=== PATIENT | female | born 1980 | race Two or more races ===

== ENCOUNTER 2017-06-25 11:55 | Emergency (ER) | payer OTHER ==
[~2017-06-25 11:55] MED LIST: ACET325T9 PO
[2017-06-25] MEDS ORDERED: KETOROLAC TROMETHAMINE 30 MG/ML INJ. IV ONE (12:45)
[2017-06-25] MEDS ORDERED: IV NORMAL SALINE 1000ML BAG 1,000 ML IV ONE (12:45)
--- NOTE | 2017-06-25 14:10 | PHYS DOC ---
Past Medical History Past Medical History: Other Additional Past Medical Histor: [facility] Past Surgical History: Tubal ligation, Other Additional Past Surgical Histo: W REPAIR Alcohol Use: Occasionally Drug Use: None Adult General Chief Complaint Chief Complaint: HEADACHE HPI HPI Patient is a 37 year old female brought to the ED by her with the complaint of headache. Patient describes a headache in the frontal forehead centrally it feels like "a knife stuck at the top of her head". She has had headaches like this in the past but they have not been this severe. She states "I called the migraines". Patient states she felt fine yesterday, she had gone to bed and was arty asleep, when she waked up to take her daughter to her bed and noticed that she had a frontal headache. She took some Tylenol PM and tried to go back to sleep but she feels like she just tossed and turned all night, she would sleep a while and then wake up a while and continued to have the headache. When she woke up this morning the headache was still there, going from the middle of the forehead up over the top of her head down the back of her neck. It is not worse on one side or the other. She has no visual disturbance. She's had no nausea or vomiting. She took some Tylenol at 8:30 this morning without relief. She denies fever or chills. Patient has no chronic medical problems and does not take daily medications. She has "bad knees" and takes Tylenol PM occasionally to help her sleep with knee pain. Review of Systems Review of Systems Constitutional: Denies fever or chills [] Eyes: Denies change in visual acuity, redness, or eye pain [] HENT: Denies nasal congestion or sore throat [] Respiratory: Denies cough or shortness of breath [] Cardiovascular: Denies chest pain GI: Denies abdominal pain, nausea, vomiting, bloody stools or diarrhea [] : Denies , she has had a BTL Musculoskeletal: Denies back pain or joint pain [] Integument: Denies rash or skin lesions [] Neurologic: As in history of present illness Current Medications Current Medications Current Medications Medications (Trade) Dose Ordered Sig/Jerome Start Time Stop Time Status Last Admin Dose Admin Fentanyl Citrate (Fentanyl 2ml Vial) 100 mcg 1X ONCE 06/25/17 14:15 06/25/17 14:16 DC 06/25/17 14:20 100 MCG Ketorolac Tromethamine (Toradol) 30 mg 1X ONCE 06/25/17 12:45 06/25/17 12:46 DC 06/25/17 12:45 30 MG Sodium Chloride 1,000 ml @ 1,000 mls/hr 1X ONCE 06/25/17 12:45 06/25/17 13:44 DC 06/25/17 12:46 1,000 MLS/HR Allergies Allergies Allergies Coded Allergies Type Severity Reaction Last Updated Verified Penicillins Allergy Unknown 04/24/14 Yes Physical Exam Physical Exam Constitutional: Well developed, well nourished, no acute distress, non-toxic appearance. Alert, mentating normally HENT: Normocephalic, atraumatic, bilateral external ears normal, oropharynx moist, no oral exudates, nose normal. [] Eyes: conjunctiva normal, no discharge. [] Neck: Normal range of motion, no stridor. [] Cardiovascular:Heart rate regular rhythm, no murmur [] Lungs & Thorax: Bilateral breath sounds clear to auscultation [] Skin: Warm, dry, no erythema, no rash. [] Extremities: No tenderness, no cyanosis, no clubbing, ROM intact, no edema. [] Neurologic: Alert and oriented X 3, normal motor function, normal sensory function, no focal deficits noted. Cranial nerves II through XII intact. No pronator drift. Strength 5 over 5 and equal bilaterally. Lower extremity strength including dorsiflexion of great toe 5 over 5 and equal bilaterally. Current Patient Data Vital Signs Vital Signs Date Time Temp Pulse Resp B/P (MAP) Pulse Ox O2 Delivery O2 Flow Rate FiO2 06/25/17 14:29 75 16 107/57 (74) 100 Room Air 06/25/17 12:09 98.0 98.0 Lab Values Laboratory Tests Test 06/25/17 11:27 POC Urine HCG, Qualitative Hcg negative (Negative) EKG EKG [] Radiology/Procedures Radiology/Procedures [] Course & Med Decision Making Course & Med Decision Making Pertinent Labs and Imaging studies reviewed. (See chart for details) 37-year-old female presents with a headache since last night. This is a headache similar to one that she has had in the past but just not this severe. It was not thunderclap in onset. The headache does not have concerning features , she has had no fever or chills. Her neck is entirely supple. I don't see any evidence of acute or concerning cause of the headache. Discussed with the patient and her that we will try a liter of fluids and some IV Toradol, she is agreeable to that plan. During her ED stay, the patient took a little nap. She states her headache improved from an "8 or 9" to a 5 after the fluids and Toradol. She continues to look very nontoxic, alert, appropriate. We will give her some IV fentanyl prior to discharge to go home and go to sleep with her driving. See instructions for plan. [] Dragon Disclaimer Dragon Disclaimer This electronic medical record was generated, in whole or in part, using a voice recognition dictation system. Departure Departure Impression: Primary Impression: Headache Disposition: 01 HOME, SELF-CARE Condition: IMPROVED Referrals: JENIFFER GAVIN MD (PCP) Patient Instructions: General Headache Without Cause, [id number] Additional Instructions: Home to rest. No driving for 12 hours due to the medication you were given. Try to take a nap this afternoon. If you need to, to go to bed tonight, you may use your Tylenol PM as usual. Drink plenty of fluids. Eat dinner tonight if you wake up between your nap and going to bed. If your headache worsens or new symptoms develop, return to emergency. DONALD BOLAÑOS MD Jun 25, 2017 14:10
[2017-06-25] MEDS ORDERED: fentaNYL PF VIAL 100 MCG/2 ML VIAL IV ONE (14:15)
[2017-06-25 14:29] VITALS: BP 107/57
[2017-06-26] MEDS ORDERED: no home medications (00:03)
[2017-06-26] MEDS ORDERED: TRAM-48 PO (18:49)
== END 2017-06-25 14:32 | disposition home or self-care (01) ==
LOC: ER 11:55
DX: R51 Headache (principal); Z88.0 Allergy status to penicillin
CPT/HCPCS: 81025; 96361; 96374; 96375; 99284; J1885; J3010; J7030

== ENCOUNTER 2017-06-25 18:27 | Observation (INO) | payer OTHER ==
[~2017-06-25] VITALS: Ht 157.5 cm; Wt 122.5 kg
[2017-06-25] MEDS ORDERED: ONDANSETRON PF 4 MG/2 ML VIAL. IV ONE (19:00)
[2017-06-25 19:09] LABS: BASO # 0.1 x10^3/uL (0.0-0.2); BASO % 1 % (0-3); EOS % 2 % (0-3); HEMATOCRIT 37.9 % (36.0-47.0); HEMOGLOBIN 12.3 g/dL (12.0-15.5); LYMPH # 3.2 x10^3/uL (1.0-4.8); LYMPH % 33 % (24-48); MEAN CORPUSCULAR HEMOGLOBIN 28 pg (25-35); MEAN CORPUSCULAR HGB CONC 33 g/dL (31-37); MEAN CORPUSCULAR VOLUME 87 fL (79-100); MONO % 6 % (0-9); NEUT % 58 % (31-73); PLATELET COUNT 283 x10^3/uL (140-400); RED BLOOD COUNT 4.35 x10^6/uL (3.50-5.40); RED CELL DISTRIBUTION WIDTH 14.5 % (11.5-14.5); WHITE BLOOD COUNT 9.8 x10^3/uL (4.0-11.0)
[2017-06-25] MEDS: fentaNYL PF VIAL 100 MCG/2 ML VIAL IV PRN ×2 (19:22→22:42)
[2017-06-25 19:23] LABS: CALCIUM 8.4 mg/dL (8.5-10.1); CREATININE 0.9 mg/dL (0.6-1.0); GFR 71.3; POTASSIUM 3.6 mmol/L (3.5-5.1)
[2017-06-25 19:26] LABS: ALBUMIN 3.1 g/dL (3.4-5.0); ALBUMIN/GLOBULIN RATIO 0.8 (1.0-1.7); TOTAL BILIRUBIN 0.2 mg/dL (0.2-1.0); TOTAL PROTEIN 7.2 g/dL (6.4-8.2)
--- NOTE | 2017-06-25 19:42 | RAD ---
PQRS Compliance Statement: One or more of the following individualized dose reduction techniques were utilized for this examination: 1. Automated exposure control 2. Adjustment of the mA and/or kV according to patient size 3. Use of iterative reconstruction technique CT HEAD, MAXILLOFACIAL WITHOUT CONTRAST History: FRONTAL LEONARD, ABOVE EYES, Comparison: None. Procedure: Axial images are obtained of the head from the skull base through the vertex without IV contrast. Helical CT imaging of the facial bones is performed without IV contrast. Findings: The ventricles and sulci are normal for the patient's age. No mass-effect, midline shift, hemorrhage or obvious acute infarction is identified. Basilar cisterns are patent. Bone windows demonstrate no significant calvarial abnormality. No acute facial bone fracture. Globes and orbits are intact. There is a 1.5 cm mucous retention cyst or polyp in the left maxillary sinus. Mild mucosal thickening bilateral ethmoid sinuses. Minimal mucosal thickening inferiorly in the maxillary sinuses. Minimal mucosal thickening right sphenoid sinus. No air-fluid level is seen.. Mastoid air cells are well aerated. IMPRESSION: 1. No acute intracranial abnormality. 2. No evidence of acute sinusitis. Electronically signed by: Azael Tobar MD (06/25/2017 7:39 PM) [facility]
[2017-06-25] MEDS ORDERED: diphenhydrAMINE 50 MG/ML VIAL IVP ONE (20:15)
[2017-06-25] MEDS ORDERED: HYDROmorphone 2 MG/ML VIAL IV ONE (20:15)
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
[2017-06-25] MEDS ORDERED: CONTRAST GIVEN MC PRN (21:00)
[2017-06-25] MEDS ORDERED: IOHEXOL 350 MG/ML 100 ML VIAL. IV ONE (21:15)
--- NOTE | 2017-06-25 21:51 | RAD ---
CT HEAD with contrast, CT venogram Clinical Indication: venous phase study to eval canernous sinus , 30 sec and 5 min delay, unable to make good quality 3D Comparison: CT head without contrast, earlier same day. TECHNIQUE: Helical CT imaging of the head is performed after 75 cc Omnipaque [address] venogram protocol. A 5 minute delay acquisition also acquired. 3-D MIP reconstructions performed. Findings: The dural venous sinuses are patent. The intracranial arteries appear intact. Enhancement of the cavernous sinuses is symmetric. No filling defect is identified. No abnormal enhancement in the brain parenchyma is identified. IMPRESSION: No evidence of cavernous sinus thrombosis. Electronically signed by: Azael Tobar MD (06/25/2017 9:48 PM) [facility]
[2017-06-25] MEDS ORDERED: fentaNYL PF VIAL 100 MCG/2 ML VIAL IV ONE (22:00)
[2017-06-25] MEDS ORDERED: methylPREDNISolone SOD SUCC PF 40 MG/ML VIAL. IV ONE (22:30)
[2017-06-25] MEDS: IV NORMAL SALINE 1000ML BAG 1,000 ML IV SCH (22:41)
[2017-06-25 23:20] VITALS: BP 114/68
[2017-06-26] MEDS ORDERED: no home medications (00:03)
[2017-06-26 03:00] VITALS: BP 123/62
[2017-06-26] MEDS: fentaNYL PF VIAL 100 MCG/2 ML VIAL IV PRN ×2 (03:48→07:51)
[2017-06-26] MEDS: IV NORMAL SALINE 1000ML BAG 1,000 ML IV SCH ×2 (03:50→18:02)
[2017-06-26 07:32] VITALS: BP 141/78
[2017-06-26] MEDS ORDERED: SUMAtriptan SUCCINATE 25 MG TABLET PO PRN (09:30)
[2017-06-26] MEDS ORDERED: ONDANSETRON PF 4 MG/2 ML VIAL. IV PRN (09:30)
[2017-06-26] MEDS ORDERED: ASA/APAP/CAFFEINE 250/250/65MG TABLET. PO PRN (09:30)
[2017-06-26] MEDS ORDERED: hydrALAZINE 20 MG/ML VIAL. IVP PRN (09:30)
[2017-06-26] MEDS ORDERED: traMADol 50 MG TABLET PO PRN (09:30)
[2017-06-26] MEDS ORDERED: ACETAMINOPHEN 325 MG TABLET. PO PRN (09:30)
[2017-06-26] MEDS ORDERED: MORPHINE SULFATE 2 MG/ML DISP.SYRIN. IV PRN (09:30)
[2017-06-26] MEDS ORDERED: DOCUSATE SODIUM 100 MG CAPSULE. PO PRN (09:30)
[2017-06-26 10:35] VITALS: BP 126/69
--- NOTE | 2017-06-26 11:37 | PDOC1 ---
History and Physical Date of Admission Date of Admission 06/26/17 Identification/Chief Complaint Chief Complaint HEADACHE Problems: Source Source: Chart review, Patient History of Present Illness History of Present Illness HPI Patient is a 37 year old female who returns to the ED for the second time last night with the complaint of headache. ERP saw the patient a few hours ago, see that record as well. pt had similar but much less headache before. SHE WAS Taking care her baby 2yo at home , felt forehead headche, radiating to occipital, wo vision or hearing change, severe 9/10, pounding sometimes, light bothers her. She had to lie down , but not better with her tylenol then came to ER. no ext numbness or weakness. NO fever, chills, vomiting, cough, sob. + nausea. She had a liter of IV normal saline and 30 of IV Toradol which took her headache from a "9 or 10" to about a 5. She then had fentanyl 100 and was discharged to home and I ask her to try to take a nap. never seen an neuro, and her pcp Never told her the diagnosis of the headache. CTA Neg, CT showed left maxillary cyst, no acute infection. Past Medical History Past Medical History headache Past Surgical History Past Surgical History: Tubal Ligation Family History Family History: Hypertension Social History Smoke: No ALCOHOL: social Drugs: None Current Problem List Problem List Problems Medical Problems: (1) Headache Status: Acute Current Medications Current Medications Current Medications Medications (Trade) Dose Ordered Sig/Ejrome Start Time Stop Time Status Last Admin Dose Admin Acetaminophen (Tylenol) 650 mg PRN Q6HRS PRN 06/26/17 09:30 Acetaminophen/ Aspirin/Caffeine (Excedrin Migraine) 1 tab PRN Q6HRS PRN 06/26/17 09:30 06/26/17 10:11 1 TAB Diphenhydramine HCl (Benadryl) 25 mg 1X ONCE 06/25/17 20:15 06/25/17 20:16 DC 06/25/17 20:23 25 MG Docusate Sodium (Colace) 100 mg PRN DAILY PRN 06/26/17 09:30 Fentanyl Citrate (Fentanyl 2ml Vial) 50 mcg PRN Q1HR PRN 06/25/17 22:15 06/26/17 22:14 06/26/17 07:51 50 MCG Hydralazine HCl (Apresoline) 10 mg PRN Q4HRS PRN 06/26/17 09:30 Hydromorphone HCl (Dilaudid) 1 mg 1X ONCE 06/25/17 20:15 06/25/17 20:16 DC 06/25/17 20:24 1 MG Info (Do NOT chart on this entry -- for MONITORING) 1 each PRN DAILY PRN 06/25/17 21:00 06/27/17 20:59 Iohexol (Omnipaque 350 Mg/ml) 100 ml 1X ONCE 06/25/17 21:15 06/25/17 21:16 DC 06/25/17 20:53 100 ML Methylprednisolone Sodium Succinate (SOLU-Medrol 40MG VIAL) 60 mg 1X ONCE 06/25/17 22:30 06/25/17 22:31 DC 06/25/17 22:42 60 MG Morphine Sulfate 2 mg PRN Q2HR PRN 06/26/17 09:30 Ondansetron HCl (Zofran) 4 mg PRN Q6HRS PRN 06/26/17 09:30 Sodium Chloride 1,000 ml @ 100 mls/hr Q10H 06/25/17 22:13 06/26/17 22:12 06/26/17 03:50 100 MLS/HR Sumatriptan Succinate (Imitrex) 50 mg PRN Q2HR PRN 06/26/17 09:30 Tramadol HCl (Ultram) 50 mg PRN Q6HRS PRN 06/26/17 09:30 06/26/17 11:12 50 MG Allergies Allergies Allergies Coded Allergies Type Severity Reaction Last Updated Verified coconut Allergy Severe Swelling 06/26/17 Yes Penicillins Allergy Intermediate 06/25/17 Yes ROS Review of System CONSTITUTIONAL: No fever or chills EYES: No recent changes SKIN: No rash or itching CARDIOVASCULAR: No chest pain, syncope, palpitations, or edema RESPIRATORY: No SOB or cough GASTROINTESTINAL: No nausea, vomiting or abdominal pain NEUROLOGICAL: No headaches or weakness ENDOCRINE: No cold or heat intolerance GENITOURINARY: No urgency or frequency of urination MUSCULOSKELETAL: No back pain or joint pain LYMPHATICS: No enlarged lymph nodes PSYCHIATRIC: No anxiety or depression Physical Exam Physical Exam GEN.: No apparent distress. Alert and oriented. HEENT: Head is normocephalic, atraumatic NECK: Supple. LUNGS: Clear to auscultation. HEART: RRR, S1, S2 present. Peripheral pulses intact ABDOMEN: Soft, nontender. Positive bowel sounds. EXTREMITIES: Without any cyanosis. NEUROLOGIC: Normal speech, normal tone PSYCHIATRIC: Normal affect, normal mood. SKIN: No ulcerations Vitals Vitals Vital Signs Date Time Temp Pulse Resp B/P (MAP) Pulse Ox O2 Delivery O2 Flow Rate FiO2 06/26/17 07:32 97.9 83 18 141/78 (99) 96 Room Air 97.9 Labs Labs Laboratory Tests Test 06/25/17 19:02 White Blood Count 9.8 x10^3/uL (4.0-11.0) Red Blood Count 4.35 x10^6/uL (3.50-5.40) Hemoglobin 12.3 g/dL (12.0-15.5) Hematocrit 37.9 % (36.0-47.0) Mean Corpuscular Volume 87 fL (79-100) Mean Corpuscular Hemoglobin 28 pg (25-35) Mean Corpuscular Hemoglobin Concent 33 g/dL (31-37) Red Cell Distribution Width 14.5 % (11.5-14.5) Platelet Count 283 x10^3/uL (140-400) Neutrophils (%) (Auto) 58 % (31-73) Lymphocytes (%) (Auto) 33 % (24-48) Monocytes (%) (Auto) 6 % (0-9) Eosinophils (%) (Auto) 2 % (0-3) Basophils (%) (Auto) 1 % (0-3) Neutrophils # (Auto) 5.7 x10^3uL (1.8-7.7) Lymphocytes # (Auto) 3.2 x10^3/uL (1.0-4.8) Monocytes # (Auto) 0.5 x10^3/uL (0.0-1.1) Eosinophils # (Auto) 0.2 x10^3/uL (0.0-0.7) Basophils # (Auto) 0.1 x10^3/uL (0.0-0.2) Erythrocyte Sedimentation Rate 25 (0-25) Sodium Level 141 mmol/L (136-145) Potassium Level 3.6 mmol/L (3.5-5.1) Chloride Level 102 mmol/L (98-107) Carbon Dioxide Level 29 mmol/L (21-32) Anion Gap 10 (6-14) Blood Urea Nitrogen 11 mg/dL (7-20) Creatinine 0.9 mg/dL (0.6-1.0) Estimated GFR (Cockcroft-Gault) 71.3 BUN/Creatinine Ratio 12 (6-20) Glucose Level 113 mg/dL (70-99) Calcium Level 8.4 mg/dL (8.5-10.1) Total Bilirubin 0.2 mg/dL (0.2-1.0) Aspartate Amino Transf (AST/SGOT) 13 U/L (15-37) Alanine Aminotransferase (ALT/SGPT) 21 U/L (14-59) Alkaline Phosphatase 83 U/L (46-116) Total Protein 7.2 g/dL (6.4-8.2) Albumin 3.1 g/dL (3.4-5.0) Albumin/Globulin Ratio 0.8 (1.0-1.7) Laboratory Tests Test 06/25/17 19:02 White Blood Count 9.8 x10^3/uL (4.0-11.0) Red Blood Count 4.35 x10^6/uL (3.50-5.40) Hemoglobin 12.3 g/dL (12.0-15.5) Hematocrit 37.9 % (36.0-47.0) Mean Corpuscular Volume 87 fL (79-100) Mean Corpuscular Hemoglobin 28 pg (25-35) Mean Corpuscular Hemoglobin Concent 33 g/dL (31-37) Red Cell Distribution Width 14.5 % (11.5-14.5) Platelet Count 283 x10^3/uL (140-400) Neutrophils (%) (Auto) 58 % (31-73) Lymphocytes (%) (Auto) 33 % (24-48) Monocytes (%) (Auto) 6 % (0-9) Eosinophils (%) (Auto) 2 % (0-3) Basophils (%) (Auto) 1 % (0-3) Neutrophils # (Auto) 5.7 x10^3uL (1.8-7.7) Lymphocytes # (Auto) 3.2 x10^3/uL (1.0-4.8) Monocytes # (Auto) 0.5 x10^3/uL (0.0-1.1) Eosinophils # (Auto) 0.2 x10^3/uL (0.0-0.7) Basophils # (Auto) 0.1 x10^3/uL (0.0-0.2) Erythrocyte Sedimentation Rate 25 (0-25) Sodium Level 141 mmol/L (136-145) Potassium Level 3.6 mmol/L (3.5-5.1) Chloride Level 102 mmol/L (98-107) Carbon Dioxide Level 29 mmol/L (21-32) Anion Gap 10 (6-14) Blood Urea Nitrogen 11 mg/dL (7-20) Creatinine 0.9 mg/dL (0.6-1.0) Estimated GFR (Cockcroft-Gault) 71.3 BUN/Creatinine Ratio 12 (6-20) Glucose Level 113 mg/dL (70-99) Calcium Level 8.4 mg/dL (8.5-10.1) Total Bilirubin 0.2 mg/dL (0.2-1.0) Aspartate Amino Transf (AST/SGOT) 13 U/L (15-37) Alanine Aminotransferase (ALT/SGPT) 21 U/L (14-59) Alkaline Phosphatase 83 U/L (46-116) Total Protein 7.2 g/dL (6.4-8.2) Albumin 3.1 g/dL (3.4-5.0) Albumin/Globulin Ratio 0.8 (1.0-1.7) VTE Prophylaxis Ordered VTE Prophylaxis Devices: Yes VTE Pharmacological Prophylaxi: Yes Assessment/Plan Assessment/Plan headache, likely migraine flare h/o chronic mild headache morbid obesity low albumin, no malnutrition plan: fu with neuro consult add exedrine and sumatripatin prn dvt ppx supportive care FARNAZ WISE MD Jun 26, 2017 11:37
[2017-06-26] MEDS ORDERED: ENOXAPARIN 40 MG/0.4 ML SYRINGE. SQ SCH (11:45)
[2017-06-26 14:30] VITALS: BP 122/72
[2017-06-26] MEDS ORDERED: IOHEXOL 350 MG/ML 100 ML VIAL. IV ONE (16:45)
[2017-06-26] MEDS ORDERED: CONTRAST GIVEN MC PRN (16:45)
--- NOTE | 2017-06-26 17:35 | RAD ---
PQRS Compliance Statement: One or more of the following individualized dose reduction techniques were utilized for this examination: 1. Automated exposure control 2. Adjustment of the mA and/or kV according to patient size 3. Use of iterative reconstruction technique CT ANGIOGRAPHY HEAD Clinical Indication: SEVERE HEADACHE Comparison: CT head with contrast, prior day. Technique: Axial CT imaging of the head was obtained after administration of 75 cc Omnipaque 350 intravenous contrast. 3-D reconstructions of the [place] of [place] were performed. PQRS Compliance Statement - Stenosis calculations for CT, MR and conventional angiography are based upon measurement of the distal ICA diameter in accordance with the NASCET methodology. Stenosis calculations for carotid ultrasound studies are derived from validated velocity criteria which are known to correlate with the NASCET methodology. Findings: Distal internal carotid arteries are patent. Anterior circulation is intact. No evidence of intracranial aneurysm. No focal stenosis is identified. Distal vertebral arteries are codominant. No evidence of dissection. Basilar artery is intact. Persistent origin of the left BRAKE [employer]PA[employer]ER AIR. No abnormal enhancement in the brain parenchyma is identified. There are bilateral subcentimeter cervical lymph nodes. IMPRESSION: Normal CTA head findings. Electronically signed by: Azael Tobar MD (06/26/2017 5:31 PM) [facility]
[2017-06-26] MEDS ORDERED: TRAM-48 PO (18:49)
--- NOTE | 2017-06-26 20:51 | PDOC3 ---
Discharge Summary [facility] Date of Admission: Jun 25, 2017 Discharge Date: Jun 26, 2017 Admitting Diagnosis headache, likely migraine flare h/o chronic mild headache morbid obesity low albumin, no malnutrition Problems: CONSULTS neuro Brief Hospital Course Patient is a 37 year old female who returns to the ED for the second time last night with the complaint of headache. ERP saw the patient a few hours ago, see that record as well. pt had similar but much less headache before. SHE WAS Taking care her baby 2yo at home , felt forehead headche, radiating to occipital, wo vision or hearing change, severe 9/10, pounding sometimes, light bothers her. She had to lie down , but not better with her tylenol then came to ER. no ext numbness or weakness. NO fever, chills, vomiting, cough, sob. + nausea. She had a liter of IV normal saline and 30 of IV Toradol which took her headache from a "9 or 10" to about a 5. She then had fentanyl 100 and was discharged to home and I ask her to try to take a nap. never seen an neuro, and her pcp Never told her the diagnosis of the headache. CTA Neg, CT showed left maxillary cyst, no acute infection. neuro consulted, did CTA, neg. dc home dc time 35min Patient History: FHx: diabetes mellitus Problems: Disposition home CONDITION AT DISCHARGE: Improved Diet regular Scheduled PRN Tramadol Hcl (Ultram), 1 TAB PO Q6HRS PRN for PAIN, (Reported) Miscellaneous Medications Acetaminophen (Tylenol), 325 MG PO, (Reported) [no home medications], (Reported) FARNAZ WISE MD Jun 26, 2017 20:51
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
== END 2017-06-26 19:35 | disposition home or self-care (01) ==
LOC: ER 18:27 → 5 SOUTH 22:10
PROVIDERS: ADMIT Internal Medicine; ATTEND Internal Medicine
DX: G43.909 Migraine, unspecified, not intractable, without status migrainosus (principal); I10 Essential (primary) hypertension; G89.29 Other chronic pain; E66.01 Morbid (severe) obesity due to excess calories; Z83.3 Family history of diabetes mellitus; Z82.49 Family history of ischemic heart disease and other diseases of the circulatory system
CPT/HCPCS: 36415; 70450; 70486; 70496; 80053; 85027; 85651; 96361; 96372; 96374; 96375; 96376; 99285; G0378; J1170; J1200; J1650; J2405; J2920; J3010; J7030; Q9967; G0379

== ENCOUNTER → 2017-07-22 | Outpatient (CLI) | payer OTHER ==
[2017-06-26 14:30] VITALS: BP 122/72
[~2017-07-22] MED LIST changes: +TRAM-48 PO; +no home medications
--- NOTE | 2017-07-22 12:26 | RAD ---
Exam performed: Right breast ultrasound. History: Pain and redness with palpable lump in the right breast. Date of service: 07/22/17. Comparison: Right breast ultrasound from 01/20/16 and 01/23/14. A diagnostic bilateral mammogram from 01/20/16 was also reviewed. Discussion: Target sonographic evaluation of the right breast is performed in the area of palpable concern at approximately 6:00 position. There is a ill-defined hypoechoic superficial solid mass with internal vascularity at 6:00 position in the periareolar region. Reportedly patient had a similar lesion which was excised in 2013 and yielded a benign pathology. Right axilla was also scanned which demonstrated mildly enlarged lymph nodes. Impression: Ill-defined hypoechoic irregular solid vascular mass measuring approximately 4.2 x 1.1 cm at 6:00 position in the superficial location in the periareolar region. The findings are suspicious. Ultrasound-guided biopsy is recommended. The findings were discussed with the patient and she agreed for biopsy. The results were given to Dr. Alisa Howard's nurse after completion of the study BI-RADS Category 4: suspicious. Mammography is the most sensitive method for finding small breast cancers, but it does not detect them all and is not a substitute for careful clinical examination. A negative mammogram does not negate a clinically suspicious finding and should not result in delay in biopsying a clinically suspicious abnormality. "Our facility is accredited by the [employer] Mammography Program."
== END | disposition home or self-care (01) ==
LOC: US 10:53
PROVIDERS: ATTEND Obstetrics & Gynecology
DX: N61.1 Abscess of the breast and nipple (principal)
CPT/HCPCS: 76641

== ENCOUNTER 2018-02-14 19:34 | Inpatient (IN) | payer OTHER ==
[2018-02-14 19:49] LABS: URINE HCG POC HCG NEGATIVE (Negative)
[2018-02-14] MEDS: ONDANSETRON PF 4 MG/2 ML VIAL. IV (20:36)
[2018-02-14] MEDS: fentaNYL PF VIAL 100 MCG/2 ML VIAL IV ×3 (20:36→23:18)
[2018-02-14 20:41] LABS: ADD MAN DIFF? NO
[2018-02-14 20:44] LABS: BASO % 0 % (0-3); EOS % 1 % (0-3); HEMATOCRIT 39.9 % (36.0-47.0); HEMOGLOBIN 13.1 g/dL (12.0-15.5); LYMPH % 13 % (24-48); MEAN CORPUSCULAR HEMOGLOBIN 29 pg (25-35); MEAN CORPUSCULAR HGB CONC 33 g/dL (31-37); MEAN CORPUSCULAR VOLUME 87 fL (79-100); MONO # 0.2 x10^3/uL (0.0-1.1); MONO % 3 % (0-9); NEUT # 6.3 x10^3uL (1.8-7.7); NEUT % 83 % (31-73); PLATELET COUNT 277 x10^3/uL (140-400); RED BLOOD COUNT 4.59 x10^6/uL (3.50-5.40); RED CELL DISTRIBUTION WIDTH 14.6 % (11.5-14.5); WHITE BLOOD COUNT 7.5 x10^3/uL (4.0-11.0)
[2018-02-14 20:58] LABS: D-DIMER 2.01 ug/mlFEU (0.00-0.50)
[2018-02-14 21:00] LABS: ANION GAP 11 (6-14); BLOOD UREA NITROGEN 10 mg/dL (7-20); BUN/CREATININE RATIO 13 (6-20); CALCIUM 8.9 mg/dL (8.5-10.1); CARBON DIOXIDE 24 mmol/L (21-32); CHLORIDE 103 mmol/L (98-107); CREATININE 0.8 mg/dL (0.6-1.0); GFR 81.6; GLUCOSE 154 mg/dL (70-99); POTASSIUM 3.8 mmol/L (3.5-5.1); SODIUM 138 mmol/L (136-145)
[2018-02-14 21:06] LABS: ALBUMIN 3.3 g/dL (3.4-5.0); ALBUMIN/GLOBULIN RATIO 0.7 (1.0-1.7); ALK PHOS 89 U/L (46-116); ALT (SGPT) 36 U/L (14-59); AST (SGOT) 25 U/L (15-37); MAGNESIUM 2.1 mg/dL (1.8-2.4); TOTAL BILIRUBIN 0.2 mg/dL (0.2-1.0); TOTAL PROTEIN 8.1 g/dL (6.4-8.2)
[2018-02-14 21:09] LABS: TROPONINI < 0.017 ng/mL (0.000-0.055)
[2018-02-14 21:13] LABS: BILIRUBIN,URINE NEGATIVE (NEG); CLARITY,URINE CLEAR; COLOR,URINE YELLOW; GLUCOSE,URINE NEGATIVE (NEG); NITRITE,URINE NEGATIVE (NEG); PH,URINE 5.5; PROTEIN,URINE 30 mg/dL (NEG-TRACE); UROBILINOGEN,URINE 0.2 mg/dL (0.2 mg/dL)
[2018-02-14 21:14] LABS: URINE HCG POC HCG NEGATIVE (Negative)
[2018-02-14 21:17] LABS: CKMB MASS < 0.5 ng/mL (0.0-3.6); CREATINE KINASE 51 U/L (26-192)
[2018-02-14 21:17] LABS: NT-PRO BNP 5 pg/mL (0-124)
[2018-02-14 21:20] LABS: AMORPHOUS SEDIMENT,UR PRESENT /HPF; BACTERIA,URINE FEW /HPF (0-FEW); RBC,URINE 0 /HPF (0-2); SQUAMOUS EPITHELIAL CELL,UR MOD /LPF; WBC,URINE OCC /HPF (0-4)
[2018-02-14] MEDS ORDERED: CONTRAST GIVEN MC (21:30)
[2018-02-14] MEDS: IOHEXOL 300 MG/ML 100ML VIAL. IV (21:37)
[2018-02-14] MEDS ORDERED: ONDANSETRON PF 4 MG/2 ML VIAL. IV (23:00)
[2018-02-14] MEDS: IV NORMAL SALINE 1000ML BAG 1,000 ML IV (23:18)
[2018-02-14] MEDS: AZITHROMYCIN 500 MG in IV DEXTROSE 5 %-0.2 % NACL 250 ML IV (23:57)
[2018-02-15] MEDS: ACETAMINOPHEN 325 MG TABLET. PO (02:12)
[2018-02-15] MEDS: fentaNYL PF VIAL 100 MCG/2 ML VIAL IV (02:12)
[2018-02-15 02:15] LABS: LACTIC ACID 0.9 mmol/L (0.4-2.0)
[2018-02-15] MEDS ORDERED: INFLUENZA VAX SCREEN BY RX. MC (02:45)
[2018-02-15 04:05] LABS: ADD MAN DIFF? NO
[2018-02-15 05:03] LABS: BASO % 0 % (0-3); EOS % 0 % (0-3); HEMATOCRIT 37.1 % (36.0-47.0); HEMOGLOBIN 12.4 g/dL (12.0-15.5); LYMPH # 1.4 x10^3/uL (1.0-4.8); LYMPH % 23 % (24-48); MEAN CORPUSCULAR HEMOGLOBIN 29 pg (25-35); MEAN CORPUSCULAR HGB CONC 34 g/dL (31-37); MEAN CORPUSCULAR VOLUME 87 fL (79-100); MONO # 0.4 x10^3/uL (0.0-1.1); MONO % 7 % (0-9); NEUT # 4.3 x10^3uL (1.8-7.7); NEUT % 70 % (31-73); PLATELET COUNT 282 x10^3/uL (140-400); RED BLOOD COUNT 4.25 x10^6/uL (3.50-5.40); RED CELL DISTRIBUTION WIDTH 14.6 % (11.5-14.5); WHITE BLOOD COUNT 6.1 x10^3/uL (4.0-11.0)
[2018-02-15 05:49] LABS: ANION GAP 9 (6-14); BLOOD UREA NITROGEN 9 mg/dL (7-20); CALCIUM 8.6 mg/dL (8.5-10.1); CARBON DIOXIDE 26 mmol/L (21-32); CHLORIDE 104 mmol/L (98-107); CREATININE 0.7 mg/dL (0.6-1.0); GFR 95.2; GLUCOSE 105 mg/dL (70-99); POTASSIUM 3.8 mmol/L (3.5-5.1); SODIUM 139 mmol/L (136-145)
[2018-02-15] MEDS ORDERED: IPRATRPIUM/ALBUTEROL 0.5/2.5MG 3 ML NEBU. (06:27)
[2018-02-15] MEDS: methylPREDNISolone SOD SUCC PF 40 MG/ML VIAL. IV (06:33)
[2018-02-15] MEDS: IPRATRPIUM/ALBUTEROL 0.5/2.5MG 3 ML NEBU. NEB ×4 (06:58→14:43)
[2018-02-15] MEDS ORDERED: ONDANSETRON PF 4 MG/2 ML VIAL. IV (11:00)
[2018-02-15] MEDS ORDERED: MORPHINE SULFATE 4 MG/ML DISP.SYRIN. IV (11:00)
[2018-02-15] MEDS ORDERED: ALBUTEROL SULFATE 2.5 MG/3 ML NEBU. NEB (11:00)
[2018-02-15] MEDS ORDERED: hydrALAZINE 20 MG/ML VIAL. IVP (11:00)
[2018-02-15] MEDS ORDERED: ACETAMINOPHEN 325 MG TABLET. PO (11:00)
[2018-02-15] MEDS ORDERED: DOCUSATE SODIUM 100 MG CAPSULE. PO (11:00)
[2018-02-15 11:27] LABS: INFLUENZA A PATIENT NEGATIVE (NEGATIVE); INFLUENZA B PATIENT NEGATIVE (NEGATIVE); OBC FLU VALID
[2018-02-15] MEDS: LACTOBACILLUS RHAMNOSUS GG 1 CAPSULE. PO ×2 (14:57→21:07)
[2018-02-15] MEDS: IV NORMAL SALINE 1000ML BAG 1,000 ML IV (14:58)
[2018-02-15] MEDS: cefTRIAXone IV Push 1 GM VIAL. IVP (21:06)
[2018-02-15] MEDS: ENOXAPARIN 40 MG/0.4 ML SYRINGE. SQ (21:08)
[2018-02-15] MEDS: AZITHROMYCIN IV (22:38)
[2018-02-15] MEDS: NACL IV (22:38)
[2018-02-15] MEDS: DEXTROSE IV (22:38)
[2018-02-16] MEDS: traMADol 50 MG TABLET PO (00:26)
[2018-02-16] MEDS: IV NORMAL SALINE 1000ML BAG 1,000 ML IV (03:16)
[2018-02-16 05:01] LABS: ADD MAN DIFF? NO
[2018-02-16 05:29] LABS: BASO % 0 % (0-3); EOS % 0 % (0-3); HEMATOCRIT 38.4 % (36.0-47.0); HEMOGLOBIN 12.2 g/dL (12.0-15.5); LYMPH % 45 % (24-48); MEAN CORPUSCULAR HEMOGLOBIN 28 pg (25-35); MEAN CORPUSCULAR HGB CONC 32 g/dL (31-37); MEAN CORPUSCULAR VOLUME 88 fL (79-100); MONO # 0.4 x10^3/uL (0.0-1.1); MONO % 7 % (0-9); NEUT # 3.1 x10^3uL (1.8-7.7); NEUT % 47 % (31-73); PLATELET COUNT 248 x10^3/uL (140-400); RED BLOOD COUNT 4.38 x10^6/uL (3.50-5.40); RED CELL DISTRIBUTION WIDTH 14.1 % (11.5-14.5); WHITE BLOOD COUNT 6.6 x10^3/uL (4.0-11.0)
[2018-02-16 05:56] LABS: ANION GAP 8 (6-14); BLOOD UREA NITROGEN 9 mg/dL (7-20); CALCIUM 8.6 mg/dL (8.5-10.1); CARBON DIOXIDE 28 mmol/L (21-32); CHLORIDE 108 mmol/L (98-107); CREATININE 0.6 mg/dL (0.6-1.0); GFR 113.8; GLUCOSE 106 mg/dL (70-99); POTASSIUM 4.3 mmol/L (3.5-5.1); SODIUM 144 mmol/L (136-145)
[2018-02-16] MEDS: ENOXAPARIN 40 MG/0.4 ML SYRINGE. SQ (08:59)
[2018-02-16] MEDS: LACTOBACILLUS RHAMNOSUS GG 1 CAPSULE. PO (08:59)
[2018-02-16] MEDS: FLU VACC QS2017-18 (36MOS+)/PF 0.5 ML SYRINGE. VAX IM (09:01)
[2018-02-16 16:23] LABS: LEGIONELLA AG UR Negative (Negative)
[2018-02-18 10:23] LABS: SPECIMEN SOURCE Urine (.); STREP PNEUMO ANTIGEN Negative (Negative)
== END 2018-02-16 15:59 | disposition home or self-care (01) | DRG 871 ==
LOC: 5 SOUTH 22:50 → ER 19:34
DX: A41.9 Sepsis, unspecified organism (principal); J15.9 Unspecified bacterial pneumonia; Z68.43 Body mass index [BMI] 50.0-59.9, adult; E66.01 Morbid (severe) obesity due to excess calories; Z79.899 Other long term (current) drug therapy; Z82.49 Family history of ischemic heart disease and other diseases of the circulatory system; Z83.3 Family history of diabetes mellitus; Z88.0 Allergy status to penicillin; Z91.018 Allergy to other foods; Z98.51 Tubal ligation status
CPT/HCPCS: 36415; 71045; 71275; 80048; 80053; 81001; 81025; 82553; 83605; 83735; 83880; 84484; 85025; 85379; 87040; 87449; 87804; 87804-59; 90686; 93005; 94640; 94760; 96365; 96375; 96376; 99285; 99285-25; J0456; J0690; J0696; J1650; J2405; J2920; J3010; J7030; J7620; Q9967

== ENCOUNTER 2019-05-26 09:06 | Emergency (ER) | payer OTHER ==
[~2019-05-26] VITALS: Ht 157.5 cm; Wt 136.1 kg
[~2019-05-26 09:06] MED LIST changes: +ALBU2.5V8 INH; +LEVO500T59 PO; +PRED20TA PO; +VENTOLIN HFA18 GM INH
--- NOTE | 2019-05-26 09:52 | RAD ---
Single view pelvis and two-view right hip dated 05/26/2019. No comparison available. Clinical data indication: Pain after fall. FINDINGS: Single AP view pelvis shows normal bony alignment. No displaced fracture. Pelvic ring is intact. Mild hypertrophic change of the bilateral SI joint and bilateral hip joint. 2 views of the right hip show normal bony alignment. No displaced fracture. No acute osseous or articular abnormality. IMPRESSION: No acute radiographic abnormality. Electronically signed by: Chun Sanchez MD (05/26/2019 9:49 AM) [facility]
[2019-05-26] MEDS ORDERED: ONDANSETRON PF 4 MG/2 ML VIAL. IV ONE (10:00)
[2019-05-26] MEDS ORDERED: MORPHINE SULFATE 10 MG/ML VIAL. SQ ONE (10:00)
[2019-05-26] MEDS ORDERED: KETOROLAC 30 MG/ML VIAL. IV ONE (10:00)
[2019-05-26 10:10] VITALS: BP 110/73
[2019-05-26] MEDS ORDERED: TRAM50TA PO (10:24)
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
[2019-06-02] MEDS ORDERED: NAPR-683 PO (17:05)
== END 2019-05-26 10:39 | disposition home or self-care (01) ==
LOC: ER 09:06
DX: S79.811A Other specified injuries of right hip, initial encounter (principal); S79.821A Other specified injuries of right thigh, initial encounter; E66.01 Morbid (severe) obesity due to excess calories; Z68.43 Body mass index [BMI] 50.0-59.9, adult; Z98.51 Tubal ligation status; Z88.0 Allergy status to penicillin; Z91.018 Allergy to other foods; W01.0XXA Fall on same level from slipping, tripping and stumbling without subsequent striking against object, initial encounter; Y93.89 Activity, other specified; Y92.89 Other specified places as the place of occurrence of the external cause; Y99.8 Other external cause status
CPT/HCPCS: 73502; 96372; 96374; 96375; 99284; J1885; J2270; J2405

== ENCOUNTER → 2019-07-02 | Outpatient (CLI) | payer OTHER ==
[2019-06-02 16:45] VITALS: BP 142/75
[~2019-07-02] MED LIST changes: +NAPR-683 PO; +TRAM50TA PO
--- NOTE | 2019-07-02 15:06 | RAD ---
DATE: 07/02/2019 8:02 AM EXAM: MAMMO GIDEON ASHLEY TIJERINA, BREAST RIGHT HISTORY: Imaging evaluation of a palpable abnormality in the right breast COMPARISON: Prior mammographic imaging 01/20/2016 Bilateral CC and MLO views of the breasts were performed. Bilateral breast tomosynthesis was performed in CC and MLO projections. This study was interpreted with the benefit of Computerized Aided Detection (CAD). FINDINGS: Breast Density: FATTY The Breast Parenchyma is primarily fatty replaced. Breast parenchyma level density A. Benign calcifications are present. Markers are seen overlying the right breast in any sites of palpable abnormality. Focal asymmetry seen in the retroareolar region of the right breast in the region of palpable abnormality. This area can be further assessed with ultrasound. Otherwise, no suspicious masses, microcalcifications or architectural distortion is present to suggest malignancy in either breast. The visualized axillae are unremarkable. ULTRASOUND FINDINGS: Targeted ultrasound of the patient detected area of concern and mammographic area of concern was performed. 7:00 position, in the retroareolar right breast: A 3.2 x 4.4 x 1.1 cm hypoechoic region is seen with internal heterogeneous echotexture and mild surrounding flow on color Doppler imaging. This is in the region of prior surgical biopsy per patient. This may represent seroma or abscess in the subcutaneous tissues IMPRESSION: No mammographic evidence of malignancy. Complex hypoechoic structure, likely collection in the subcutaneous tissues is seen in the retroareolar right breast at the approximately 7:00 position. Per patient, this is the site of prior surgical intervention/biopsy, and therefore may represent changes of seroma or abscess. BI-RADS CATEGORY: 3 PROBABLY BENIGN FINDING(S)-SHORT INTERVAL FOLLOW-UP SUGGESTED recommend clinical management of the hypoechoic structure, likely abscess or seroma and if image guided aspiration or biopsy is clinically indicated this can be performed. RECOMMENDED FOLLOW-UP: 6M 6 MONTH FOLLOW-UP PQRS compliance statement: Patient information was entered into a reminder system with a target due date for the next mammogram. Mammography is a sensitive method for finding small breast cancers, but it does not detect them all and is not a substitute for careful clinical examination. A negative mammogram does not negate a clinically suspicious finding and should not result in delay in biopsying a clinically suspicious abnormality. "Our facility is accredited by the [employer] Mammography Program."
== END | disposition home or self-care (01) ==
LOC: MAMMO 07:54
PROVIDERS: ATTEND Obstetrics & Gynecology
DX: R92.1 Mammographic calcification found on diagnostic imaging of breast (principal)
CPT/HCPCS: 76641; 77066; G0279; 77062

== ENCOUNTER 2020-07-31 12:41 | Inpatient (IN) | payer OTHER ==
[~2020-07-31] VITALS: Ht 157.5 cm; Wt 138.6 kg
--- NOTE | 2020-07-31 13:20 | EKG ---
[facility] [address] [place] [address] Test Date: 2020-07-31 Test Time: 13:11:42 Pat Name: KELLIE GONZALES Department: Room: Gender: F [employer] Admin: : 1980 Requested By: AZIZA COX Order Number: [id number] Reading MD: Measurements Intervals [place] Rate: 127 P: 192 CO: 112 QRS: -1 QRSD: 68 T: 14 QT: 346 QTc: 509 Interpretive Statements SUPRAVENTRICULAR RHYTHM LEFTWARD AXIS QRS(T) CONTOUR ABNORMALITY CONSIDER ANTEROSEPTAL MYOCARDIAL DAMAGE CONSISTENT WITH INFERIOR INFARCT PROBABLY OLD ABNORMAL ECG RI6.02 No previous ECG available for comparison
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
[2020-07-31] MEDS ORDERED: IV NORMAL SALINE 1000ML BAG 1,000 ML IV ONE (13:30)
[2020-07-31] MEDS ORDERED: ACETAMINOPHEN 500 MG TABLET PO ONE (13:30)
[2020-07-31 13:39] LABS: BASO % 0 % (0-3); EOS % 0 % (0-3); HEMOGLOBIN 14.3 g/dL (12.0-15.5); LYMPH # 1.7 x10^3/uL (1.0-4.8); LYMPH % 20 % (24-48); MEAN CORPUSCULAR HEMOGLOBIN 28 pg (25-35); MEAN CORPUSCULAR HGB CONC 33 g/dL (31-37); MEAN CORPUSCULAR VOLUME 85 fL (79-100); MONO # 0.5 x10^3/uL (0.0-1.1); MONO % 6 % (0-9); NEUT # 6.3 x10^3/uL (1.8-7.7); NEUT % 74 % (31-73); PLATELET COUNT 265 x10^3/uL (140-400); RED BLOOD COUNT 5.05 x10^6/uL (3.50-5.40); WHITE BLOOD COUNT 8.5 x10^3/uL (4.0-11.0)
[2020-07-31 13:52] LABS: CALCIUM 9.2 mg/dL (8.5-10.1); CREATININE 0.9 mg/dL (0.6-1.0); GFR 70.1; POTASSIUM 3.9 mmol/L (3.5-5.1)
--- NOTE | 2020-07-31 13:56 | RAD ---
INDICATION: Reason: COVID POS/SOA / Spl. Instructions: / History: COMPARISON: June 02, 2019 FINDINGS: Single view of chest obtained. Hypoexpanded examination with mild interstitial opacities bilaterally. Haziness at left lung base but limited evaluation of the region secondary to overlying cardiac silhouette obscuring. IMPRESSION: * Hypoexpanded exam with mild interstitial opacities bilaterally. This could be secondary to mild crowding of the vascular markings from hypoexpansion with mild edema or interstitial infiltrate also possible given this finding. There is relative haziness at the left lung base which could be secondary to a region of atelectasis or infiltrate. Electronically signed by: Ry Simmons MD (07/31/2020 1:53 PM) [id number]
[2020-07-31] MEDS ORDERED: AZITHRMYCN 500MG IVPB FOR OMNI 250 ML IV ONE (14:00)
[2020-07-31] MEDS ORDERED: cefTRIAXone IV Push 1 GM VIAL. IVP ONE (14:00)
[2020-07-31] MEDS ORDERED: DEXAMETHASONE SOD PHOS 4 MG/ML VIAL IVP ONE (14:00)
[2020-07-31 14:08] LABS: ALBUMIN 3.6 g/dL (3.4-5.0); ALBUMIN/GLOBULIN RATIO 0.7 (1.0-1.7); TOTAL BILIRUBIN 0.2 mg/dL (0.2-1.0); TOTAL PROTEIN 8.7 g/dL (6.4-8.2)
[2020-07-31 14:24] LABS: PREG TEST PT QUAL NEGATIVE (NEG)
[2020-07-31] MEDS ORDERED: ONDANSETRON PF 4 MG/2 ML VIAL. IV PRN (14:30)
[2020-07-31 14:37] LABS: BILIRUBIN,URINE NEGATIVE (NEG); CLARITY,URINE CLOUDY; COLOR,URINE YELLOW; NITRITE,URINE NEGATIVE (NEG); PROTEIN,URINE NEGATIVE (NEG-TRACE); UROBILINOGEN,URINE 0.2 mg/dL (0.2 mg/dL)
[2020-07-31 14:41] LABS: BACTERIA,URINE MANY /HPF (0-FEW); SQUAMOUS EPITHELIAL CELL,UR MANY /LPF; WBC,URINE 20-40 /HPF (0-4)
[2020-07-31 14:42] LABS: RBC,URINE OCC /HPF (0-2)
[2020-07-31 14:47] LABS: PROTHROMBIN TIME PATIENT 12.7 SEC (11.7-14.0)
[2020-07-31 14:50] LABS: D-DIMER 0.97 ug/mlFEU (0.00-0.50)
[2020-07-31] MEDS ORDERED: POTASSIUM CHLORIDE 10MEQ 100 ML IV SCH (15:45)
[2020-07-31] MEDS ORDERED: DEXTROSE 50% 25 GM / 50ML DISP.SYRIN. IV PRN (15:45)
[2020-07-31] MEDS ORDERED: ONDANSETRON PF 4 MG/2 ML VIAL. IVP PRN (15:45)
[2020-07-31] MEDS ORDERED: ACETAMINOPHEN 325 MG TABLET. PO PRN (15:45)
[2020-07-31] MEDS ORDERED: POTASSIUM CHLORIDE 20 MEQ TABLET.ER. PO PRN (15:45)
[2020-07-31] MEDS ORDERED: POTASSIUM CHLORIDE 10MEQ 100 ML IV PRN (15:45)
[2020-07-31] MEDS ORDERED: IOHEXOL 350 MG/ML 100 ML VIAL. IV ONE (15:45)
[2020-07-31] MEDS ORDERED: MAGNESIUM SULFATE 2GM 50 ML IV SCH (15:45)
[2020-07-31] MEDS ORDERED: SENNOSIDES 8.6 MG TABLET PO PRN (15:45)
[2020-07-31] MEDS ORDERED: DOCUSATE SODIUM 100 MG CAPSULE. PO PRN (15:45)
[2020-07-31] MEDS ORDERED: CONTRAST GIVEN. MC PRN (15:45)
[2020-07-31] MEDS ORDERED: ELECTROLYTE (NON-ICU) PROTOCOL MC PRN (16:15)
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
--- NOTE | 2020-07-31 16:41 | RAD ---
EXAM: CT chest with contrast - pulmonary embolus protocol CLINICAL HISTORY: Reason: covid, soa, pos d dimer COMPARISON: None. TECHNIQUE: CT of the chest following the administration of intravenous contrast during the pulmonary arterial phase. Axial, coronal and sagittal reformatted images were generated including MIP images. ---PQRS compliance statement - One or more of the following individualized dose reduction techniques were utilized for this study: 1. Automated exposure control 2. Adjustment of the mA and/or kV according to patient size 3. Use of iterative reconstruction technique--- FINDINGS: CHEST: Diagnostic quality: Suboptimal. Contrast is predominantly seen within the aorta. Pulmonary emboli: No obvious large central pulmonary emboli seen. The pulmonary artery branches are not adequately assessed. Right heart strain: None Pulmonary arteries: Normal in caliber. Heart is not enlarged. No pericardial effusion. No pleural effusion or pneumothorax. Several prominent and mildly enlarged mediastinal and hilar lymph nodes are seen. No axillary lymphadenopathy. Solid and groundglass opacities are seen dependently in the lower lobes and peripherally. A few nodular groundglass opacities are also seen in the lung apices. Visualized Upper abdomen: Hepatic hypoattenuation may be seen with fatty liver. Bones: No progressive osseous lesion is seen although degenerative changes of the spine are seen. Bony bridging of several left ribs likely from old trauma. IMPRESSION: 1. Examination is markedly limited for pulmonary embolus given predominant aortic phase of imaging. Within these constraints no obvious central pulmonary embolus is seen, distal branches are not adequately assessed. 2. Bilateral predominantly peripheral groundglass and solid nodular opacities are consistent with provided history of COVID pneumonia. Other infectious or inflammatory processes could also have this appearance. Imaging follow-up to resolution is recommended to exclude underlying mass. 3. Prominent to borderline enlarged mediastinal and hilar lymph nodes may be reactive. Electronically signed by: Khoi Carbone MD (07/31/2020 4:38 PM) [facility]
[2020-07-31] MEDS ORDERED: ACET500T68 PO (17:08)
[2020-07-31] MEDS: AZITHROMYCIN 500 MG in IV NORMAL SALINE 250ML 250 ML IV SCH (18:30)
[2020-07-31] MEDS: cefTRIAXone IV Push 1 GM VIAL. IVP SCH (18:31)
[2020-07-31] MEDS: THIAMINE INJ 100 MG in IV DEXTROSE 5% 50 ML IV SCH (18:31)
[2020-07-31] MEDS: methylPREDNISolone SOD SUCC PF 40 MG/ML VIAL. IV SCH ×2 (18:32→23:52)
[2020-07-31] MEDS: IPRATRPIUM/ALBUTEROL 0.5/2.5MG 3 ML NEBU. NEB SCH (19:27)
[2020-07-31 19:59] VITALS: BP 121/87
[2020-07-31] MEDS ORDERED: MAGNESIUM OXIDE 400 MG TABLET PO SCH (21:00)
[2020-07-31 22:30] VITALS: BP 115/77
[2020-08-01 03:10] VITALS: BP 129/74
[2020-08-01 04:23] LABS: BASO % 0 % (0-3); EOS % 0 % (0-3); HEMATOCRIT 38.3 % (36.0-47.0); HEMOGLOBIN 12.6 g/dL (12.0-15.5); LYMPH # 1.1 x10^3/uL (1.0-4.8); LYMPH % 27 % (24-48); MEAN CORPUSCULAR HEMOGLOBIN 28 pg (25-35); MEAN CORPUSCULAR HGB CONC 33 g/dL (31-37); MEAN CORPUSCULAR VOLUME 85 fL (79-100); MONO # 0.1 x10^3/uL (0.0-1.1); MONO % 2 % (0-9); NEUT # 2.9 x10^3/uL (1.8-7.7); NEUT % 71 % (31-73); PLATELET COUNT 260 x10^3/uL (140-400); RED BLOOD COUNT 4.48 x10^6/uL (3.50-5.40); RED CELL DISTRIBUTION WIDTH 15.2 % (11.5-14.5); WHITE BLOOD COUNT 4.1 x10^3/uL (4.0-11.0)
[2020-08-01 05:35] LABS: CALCIUM 8.9 mg/dL (8.5-10.1); CREATININE 0.7 mg/dL (0.6-1.0); GFR 93.6; MAGNESIUM 2.2 mg/dL (1.8-2.4); PHOSPHORUS 3.1 mg/dL (2.6-4.7); POTASSIUM 4.2 mmol/L (3.5-5.1)
[2020-08-01] MEDS: IPRATRPIUM/ALBUTEROL 0.5/2.5MG 3 ML NEBU. NEB SCH ×4 (06:29→20:00)
[2020-08-01] MEDS: methylPREDNISolone SOD SUCC PF 40 MG/ML VIAL. IV SCH ×3 (06:42→16:52)
[2020-08-01 07:52] VITALS: BP 119/79
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
[2020-08-01] MEDS: PANTOPRAZOLE 40 MG TABLET.DR. PO SCH (09:28)
[2020-08-01] MEDS: THIAMINE INJ 100 MG in IV DEXTROSE 5% 50 ML IV SCH (09:28)
[2020-08-01] MEDS: ASCORBIC ACID 500 MG TABLET PO SCH (09:28)
--- NOTE | 2020-08-01 09:50 | NUR ---
[facility] following for discharge planning. Spoke with RN and reviewed chart. Pt from home, regular diet. Pt currently on 2l 02 with no home 02. [facility] requested a 6 min walk for today, as pt is a potential weekend discharge. Pt currently on IV Dextrose and IV Rocephin. Pt COVID positive. Pt added to possible weekend discharge list. [facility] following. Addendum: 08/01/20 at 1049 by ALBA ROD Spoke with RT to request 6 min walk be completed [facility]. Patient choice of vendor form completed. [facility]ek[facility] notified of potential 02 needs over the weekend. Addendum: 08/01/20 at 1227 by ALBA ROD 6 min walk results and script faxed to [facility]. Pt approved for . Tank delivered to room. Pt to call [employer] upon discharge home for home 02 setup. Pt will needs scripts at discharge if oral abx are needed. [facility] updated weekend discharge list but there should be no further SW needs. Addendum: 08/01/20 at 1418 by ALBA ROD Spoke with pt who verified she will call [facility] once she gets home for setup.
--- NOTE | 2020-08-01 09:51 | PDOC ---
Infectious Disease Note Vital Sign Vital Signs Vital Signs Date Time Temp Pulse Resp B/P (MAP) Pulse Ox O2 Delivery O2 Flow Rate FiO2 08/01/20 07:52 98.9 78 16 119/79 (92) 96 Nasal Cannula 2.0 98.9 Labs Lab Laboratory Tests Test 07/31/20 13:20 07/31/20 14:25 08/01/20 04:00 White Blood Count 8.5 x10^3/uL (4.0-11.0) 4.1 x10^3/uL (4.0-11.0) Red Blood Count 5.05 x10^6/uL (3.50-5.40) 4.48 x10^6/uL (3.50-5.40) Hemoglobin 14.3 g/dL (12.0-15.5) 12.6 g/dL (12.0-15.5) Hematocrit 43.0 % (36.0-47.0) 38.3 % (36.0-47.0) Mean Corpuscular Volume 85 fL (79-100) 85 fL (79-100) Mean Corpuscular Hemoglobin 28 pg (25-35) 28 pg (25-35) Mean Corpuscular Hemoglobin Concent 33 g/dL (31-37) 33 g/dL (31-37) Red Cell Distribution Width 15.0 % (11.5-14.5) 15.2 % (11.5-14.5) Platelet Count 265 x10^3/uL (140-400) 260 x10^3/uL (140-400) Neutrophils (%) (Auto) 74 % (31-73) 71 % (31-73) Lymphocytes (%) (Auto) 20 % (24-48) 27 % (24-48) Monocytes (%) (Auto) 6 % (0-9) 2 % (0-9) Eosinophils (%) (Auto) 0 % (0-3) 0 % (0-3) Basophils (%) (Auto) 0 % (0-3) 0 % (0-3) Neutrophils # (Auto) 6.3 x10^3/uL (1.8-7.7) 2.9 x10^3/uL (1.8-7.7) Lymphocytes # (Auto) 1.7 x10^3/uL (1.0-4.8) 1.1 x10^3/uL (1.0-4.8) Monocytes # (Auto) 0.5 x10^3/uL (0.0-1.1) 0.1 x10^3/uL (0.0-1.1) Eosinophils # (Auto) 0.0 x10^3/uL (0.0-0.7) 0.0 x10^3/uL (0.0-0.7) Basophils # (Auto) 0.0 x10^3/uL (0.0-0.2) 0.0 x10^3/uL (0.0-0.2) Sodium Level 137 mmol/L (136-145) 138 mmol/L (136-145) Potassium Level 3.9 mmol/L (3.5-5.1) 4.2 mmol/L (3.5-5.1) Chloride Level 101 mmol/L (98-107) 104 mmol/L (98-107) Carbon Dioxide Level 27 mmol/L (21-32) 24 mmol/L (21-32) Anion Gap 9 (6-14) 10 (6-14) Blood Urea Nitrogen 11 mg/dL (7-20) 11 mg/dL (7-20) Creatinine 0.9 mg/dL (0.6-1.0) 0.7 mg/dL (0.6-1.0) Estimated GFR (Cockcroft-Gault) 70.1 93.6 BUN/Creatinine Ratio 12 (6-20) Glucose Level 123 mg/dL (70-99) 162 mg/dL (70-99) Lactic Acid Level 1.6 mmol/L (0.4-2.0) Calcium Level 9.2 mg/dL (8.5-10.1) 8.9 mg/dL (8.5-10.1) Transferrin 285 mg/dL (192-364) Total Bilirubin 0.2 mg/dL (0.2-1.0) Aspartate Amino Transf (AST/SGOT) 30 U/L (15-37) Alanine Aminotransferase (ALT/SGPT) 47 U/L (14-59) Alkaline Phosphatase 79 U/L (46-116) Lactate Dehydrogenase 201 U/L (81-234) Creatine Kinase 37 U/L (26-192) Troponin I Quantitative < 0.017 ng/mL (0.000-0.055) C-Reactive Protein, Quantitative 43.9 mg/L (0-3.3) Total Protein 8.7 g/dL (6.4-8.2) Albumin 3.6 g/dL (3.4-5.0) Albumin/Globulin Ratio 0.7 (1.0-1.7) Lipase 63 U/L (73-393) Procalcitonin < 0.10 ng/mL (0.00-0.10) Serum Test, Qualitative Negative (NEG) Prothrombin Time 12.7 SEC (11.7-14.0) Prothromb Time International Ratio 1.0 (0.8-1.1) Activated Partial Thromboplast Time 27 SEC (24-38) Fibrinogen 560 mg/dL (200-440) D-Dimer (Eve) 0.97 ug/mlFEU (0.00-0.50) Urine Collection Type Unknown Urine Color Yellow Urine Clarity Cloudy Urine pH 6.0 (<5.0-8.0) Urine Specific [place] 1.020 (1.000-1.030) Urine Protein Negative mg/dL (NEG-TRACE) Urine Glucose (UA) Negative mg/dL (NEG) Urine Ketones (Stick) Trace mg/dL (NEG) Urine Blood Trace (NEG) Urine Nitrite Negative (NEG) Urine Bilirubin Negative (NEG) Urine Urobilinogen Dipstick 0.2 mg/dL (0.2 mg/dL) Urine Leukocyte Esterase Small (NEG) Urine RBC Occ /HPF (0-2) Urine WBC 20-40 /HPF (0-4) Urine Squamous Epithelial Cells Many /LPF Urine Bacteria Many /HPF (0-FEW) Urine Mucus Marked /LPF Phosphorus Level 3.1 mg/dL (2.6-4.7) Magnesium Level 2.2 mg/dL (1.8-2.4) Objective Assessment Fever Possible UTI but many squamous cells and asymptomatic PCN allergy but has tolerated Amox Acute Hypoxic resp failure on 2 liters COVID +9/4 Morbid obesity Plan Plan of Care Repeat COVID Cont Abx F/u cults and labs Type and screen - may benefit from plasma and remdesivir but await Pulm eval D/w nursing Thank you # [id number] ZURDO TINSLEY MD Aug 01, 2020 09:51
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
[2020-08-01 11:29] VITALS: BP 134/72
[2020-08-01 15:24] VITALS: BP 142/66
--- NOTE | 2020-08-01 16:40 | PDOC ---
PULMONARY PROGRESS NOTES DATE: 08/01/20 TIME: 16:40 Vitals Vital Signs Date Time Temp Pulse Resp B/P (MAP) Pulse Ox O2 Delivery O2 Flow Rate FiO2 08/01/20 15:24 99.2 90 20 142/66 (91) 92 Nasal Cannula 2.0 99.2 Lungs: Clear Labs Laboratory Tests Test 07/31/20 13:20 07/31/20 14:25 08/01/20 04:00 White Blood Count 8.5 x10^3/uL (4.0-11.0) 4.1 x10^3/uL (4.0-11.0) Red Blood Count 5.05 x10^6/uL (3.50-5.40) 4.48 x10^6/uL (3.50-5.40) Hemoglobin 14.3 g/dL (12.0-15.5) 12.6 g/dL (12.0-15.5) Hematocrit 43.0 % (36.0-47.0) 38.3 % (36.0-47.0) Mean Corpuscular Volume 85 fL (79-100) 85 fL (79-100) Mean Corpuscular Hemoglobin 28 pg (25-35) 28 pg (25-35) Mean Corpuscular Hemoglobin Concent 33 g/dL (31-37) 33 g/dL (31-37) Red Cell Distribution Width 15.0 % (11.5-14.5) 15.2 % (11.5-14.5) Platelet Count 265 x10^3/uL (140-400) 260 x10^3/uL (140-400) Neutrophils (%) (Auto) 74 % (31-73) 71 % (31-73) Lymphocytes (%) (Auto) 20 % (24-48) 27 % (24-48) Monocytes (%) (Auto) 6 % (0-9) 2 % (0-9) Eosinophils (%) (Auto) 0 % (0-3) 0 % (0-3) Basophils (%) (Auto) 0 % (0-3) 0 % (0-3) Neutrophils # (Auto) 6.3 x10^3/uL (1.8-7.7) 2.9 x10^3/uL (1.8-7.7) Lymphocytes # (Auto) 1.7 x10^3/uL (1.0-4.8) 1.1 x10^3/uL (1.0-4.8) Monocytes # (Auto) 0.5 x10^3/uL (0.0-1.1) 0.1 x10^3/uL (0.0-1.1) Eosinophils # (Auto) 0.0 x10^3/uL (0.0-0.7) 0.0 x10^3/uL (0.0-0.7) Basophils # (Auto) 0.0 x10^3/uL (0.0-0.2) 0.0 x10^3/uL (0.0-0.2) Sodium Level 137 mmol/L (136-145) 138 mmol/L (136-145) Potassium Level 3.9 mmol/L (3.5-5.1) 4.2 mmol/L (3.5-5.1) Chloride Level 101 mmol/L (98-107) 104 mmol/L (98-107) Carbon Dioxide Level 27 mmol/L (21-32) 24 mmol/L (21-32) Anion Gap 9 (6-14) 10 (6-14) Blood Urea Nitrogen 11 mg/dL (7-20) 11 mg/dL (7-20) Creatinine 0.9 mg/dL (0.6-1.0) 0.7 mg/dL (0.6-1.0) Estimated GFR (Cockcroft-Gault) 70.1 93.6 BUN/Creatinine Ratio 12 (6-20) Glucose Level 123 mg/dL (70-99) 162 mg/dL (70-99) Lactic Acid Level 1.6 mmol/L (0.4-2.0) Calcium Level 9.2 mg/dL (8.5-10.1) 8.9 mg/dL (8.5-10.1) Transferrin 285 mg/dL (192-364) Total Bilirubin 0.2 mg/dL (0.2-1.0) Aspartate Amino Transf (AST/SGOT) 30 U/L (15-37) Alanine Aminotransferase (ALT/SGPT) 47 U/L (14-59) Alkaline Phosphatase 79 U/L (46-116) Lactate Dehydrogenase 201 U/L (81-234) Creatine Kinase 37 U/L (26-192) Troponin I Quantitative < 0.017 ng/mL (0.000-0.055) C-Reactive Protein, Quantitative 43.9 mg/L (0-3.3) Total Protein 8.7 g/dL (6.4-8.2) Albumin 3.6 g/dL (3.4-5.0) Albumin/Globulin Ratio 0.7 (1.0-1.7) Lipase 63 U/L (73-393) Procalcitonin < 0.10 ng/mL (0.00-0.10) Serum Test, Qualitative Negative (NEG) Prothrombin Time 12.7 SEC (11.7-14.0) Prothromb Time International Ratio 1.0 (0.8-1.1) Activated Partial Thromboplast Time 27 SEC (24-38) Fibrinogen 560 mg/dL (200-440) D-Dimer (Eve) 0.97 ug/mlFEU (0.00-0.50) Urine Collection Type Unknown Urine Color Yellow Urine Clarity Cloudy Urine pH 6.0 (<5.0-8.0) Urine Specific [place] 1.020 (1.000-1.030) Urine Protein Negative mg/dL (NEG-TRACE) Urine Glucose (UA) Negative mg/dL (NEG) Urine Ketones (Stick) Trace mg/dL (NEG) Urine Blood Trace (NEG) Urine Nitrite Negative (NEG) Urine Bilirubin Negative (NEG) Urine Urobilinogen Dipstick 0.2 mg/dL (0.2 mg/dL) Urine Leukocyte Esterase Small (NEG) Urine RBC Occ /HPF (0-2) Urine WBC 20-40 /HPF (0-4) Urine Squamous Epithelial Cells Many /LPF Urine Bacteria Many /HPF (0-FEW) Urine Mucus Marked /LPF Phosphorus Level 3.1 mg/dL (2.6-4.7) Magnesium Level 2.2 mg/dL (1.8-2.4) Laboratory Tests Test 08/01/20 04:00 White Blood Count 4.1 x10^3/uL (4.0-11.0) Red Blood Count 4.48 x10^6/uL (3.50-5.40) Hemoglobin 12.6 g/dL (12.0-15.5) Hematocrit 38.3 % (36.0-47.0) Mean Corpuscular Volume 85 fL (79-100) Mean Corpuscular Hemoglobin 28 pg (25-35) Mean Corpuscular Hemoglobin Concent 33 g/dL (31-37) Red Cell Distribution Width 15.2 % (11.5-14.5) Platelet Count 260 x10^3/uL (140-400) Neutrophils (%) (Auto) 71 % (31-73) Lymphocytes (%) (Auto) 27 % (24-48) Monocytes (%) (Auto) 2 % (0-9) Eosinophils (%) (Auto) 0 % (0-3) Basophils (%) (Auto) 0 % (0-3) Neutrophils # (Auto) 2.9 x10^3/uL (1.8-7.7) Lymphocytes # (Auto) 1.1 x10^3/uL (1.0-4.8) Monocytes # (Auto) 0.1 x10^3/uL (0.0-1.1) Eosinophils # (Auto) 0.0 x10^3/uL (0.0-0.7) Basophils # (Auto) 0.0 x10^3/uL (0.0-0.2) Sodium Level 138 mmol/L (136-145) Potassium Level 4.2 mmol/L (3.5-5.1) Chloride Level 104 mmol/L (98-107) Carbon Dioxide Level 24 mmol/L (21-32) Anion Gap 10 (6-14) Blood Urea Nitrogen 11 mg/dL (7-20) Creatinine 0.7 mg/dL (0.6-1.0) Estimated GFR (Cockcroft-Gault) 93.6 Glucose Level 162 mg/dL (70-99) Calcium Level 8.9 mg/dL (8.5-10.1) Phosphorus Level 3.1 mg/dL (2.6-4.7) Magnesium Level 2.2 mg/dL (1.8-2.4) Medications Active Scripts Medications Dose Route/Sig Max Daily Dose Days Date Category Acetaminophen 500 Mg Tablet 1 Tab PO PRN Q6HRS PRN 15 07/31/20 Reported Naprosyn (Naproxen) 500 Mg Tablet 1 Tab PO BID 06/02/19 Rx Tramadol Hcl 50 Mg Tablet 50-100 Mg PO Q6H PRN 3 05/26/19 Rx Ventolin Hfa Inhaler (Albuterol Sulfate) 18 Gm Hfa.aer.ad 2 Puff INH Q4HRS 02/16/18 Rx Levaquin (Levofloxacin) 500 Mg Tablet 1 Tab PO DAILY 02/16/18 Rx Proair Hfa Inhaler (Albuterol Sulfate) 8.5 Gm Hfa.aer.ad 1 Puff INH PRN Q6HRS PRN 02/15/18 Reported [no home medications] 06/26/17 Reported Impression . Full note dictated, agree with current medical management Add convalescent serum Decrease Lovenox to [address] angiogram no evidence of PE KRISTAL MOSQUERA MD Aug 01, 2020 16:40
[2020-08-01] MEDS: AZITHROMYCIN 500 MG in IV NORMAL SALINE 250ML 250 ML IV SCH (16:52)
[2020-08-01] MEDS: cefTRIAXone IV Push 1 GM VIAL. IVP SCH (16:52)
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
[2020-08-01 19:46] VITALS: BP 131/69
[2020-08-01] MEDS: LACTOBACILLUS RHAMNOSUS GG 1 CAPSULE. PO SCH (20:23)
[2020-08-01 23:52] VITALS: BP 125/67
[2020-08-02] MEDS: methylPREDNISolone SOD SUCC PF 40 MG/ML VIAL. IV SCH ×3 (00:06→21:14)
[2020-08-02 03:11] VITALS: BP 143/79
--- NOTE | 2020-08-02 07:05 | PDOC ---
Infectious Disease Note Subjective Subjective Feeling well. No F/c/S/N/V/D/dysuria Taste and smell have returned ROS ROS o/w neg Vital Sign Vital Signs Vital Signs Date Time Temp Pulse Resp B/P (MAP) Pulse Ox O2 Delivery O2 Flow Rate FiO2 08/02/20 03:11 97.6 108 16 143/79 (100) 95 Room Air 97.6 08/01/20 23:52 2.0 Physical Exam PHYSICAL EXAM CONSTITUTIONAL: She is morbidly obese. She is cooperative. She is in no acute distress. Looks well HEENT: Pupils equal and reactive. She has normal conjunctivae. Oral cavity, pharynx was clear. NECK: Supple, no JVD. LUNGS: Clear without wheeze. HEART: S1, S2. ABDOMEN: Morbidly obese, soft, nontender, nondistended, no guarding or rebound. EXTREMITIES: No clubbing, cyanosis or gross edema. SKIN: Warm to touch without signs of rash. She does have tattoos. NEUROLOGIC: She is nonfocal, moves all extremities. PSYCHIATRIC: Affect is very pleasant. Labs Micro Microbiology 07/31/20 Blood Culture - Preliminary, Resulted NO GROWTH AFTER 1 DAY Objective Assessment Fever - better - cults neg - Rocephin/Azithromycin Possible UTI but many squamous cells and asymptomatic PCN allergy but has tolerated Amox Acute Hypoxic resp failure on 2 liters COVID +07/25 - on Steroids Morbid obesity Plan Plan of Care D/c Azithromycin/Rocephin after one more dose Glucose per primary F/u cults and labs Typed and screened Disposition per primary and pulm D/w nursing ZURDO TINSLEY MD Aug 02, 2020 07:05
[2020-08-02] MEDS ORDERED: AZITHROMYCIN 250 MG TABLET. PO ONE (07:30)
[2020-08-02] MEDS ORDERED: cefTRIAXone IV Push 1 GM VIAL. IVP ONE (07:30)
[2020-08-02 07:45] VITALS: BP 124/68
--- NOTE | 2020-08-02 07:50 | PDOC ---
PULMONARY PROGRESS NOTES DATE: 08/02/20 TIME: 07:49 Subjective on 02 sob better, has occ cough Vitals Vital Signs Date Time Temp Pulse Resp B/P (MAP) Pulse Ox O2 Delivery O2 Flow Rate FiO2 08/02/20 03:11 97.6 108 16 143/79 (100) 95 Room Air 97.6 08/01/20 23:52 2.0 Comments alert obese appears comfortable nc at rrr no accessory muscle use no rash no edema Labs Laboratory Tests Test 07/31/20 13:20 07/31/20 14:25 08/01/20 04:00 White Blood Count 8.5 x10^3/uL (4.0-11.0) 4.1 x10^3/uL (4.0-11.0) Red Blood Count 5.05 x10^6/uL (3.50-5.40) 4.48 x10^6/uL (3.50-5.40) Hemoglobin 14.3 g/dL (12.0-15.5) 12.6 g/dL (12.0-15.5) Hematocrit 43.0 % (36.0-47.0) 38.3 % (36.0-47.0) Mean Corpuscular Volume 85 fL (79-100) 85 fL (79-100) Mean Corpuscular Hemoglobin 28 pg (25-35) 28 pg (25-35) Mean Corpuscular Hemoglobin Concent 33 g/dL (31-37) 33 g/dL (31-37) Red Cell Distribution Width 15.0 % (11.5-14.5) 15.2 % (11.5-14.5) Platelet Count 265 x10^3/uL (140-400) 260 x10^3/uL (140-400) Neutrophils (%) (Auto) 74 % (31-73) 71 % (31-73) Lymphocytes (%) (Auto) 20 % (24-48) 27 % (24-48) Monocytes (%) (Auto) 6 % (0-9) 2 % (0-9) Eosinophils (%) (Auto) 0 % (0-3) 0 % (0-3) Basophils (%) (Auto) 0 % (0-3) 0 % (0-3) Neutrophils # (Auto) 6.3 x10^3/uL (1.8-7.7) 2.9 x10^3/uL (1.8-7.7) Lymphocytes # (Auto) 1.7 x10^3/uL (1.0-4.8) 1.1 x10^3/uL (1.0-4.8) Monocytes # (Auto) 0.5 x10^3/uL (0.0-1.1) 0.1 x10^3/uL (0.0-1.1) Eosinophils # (Auto) 0.0 x10^3/uL (0.0-0.7) 0.0 x10^3/uL (0.0-0.7) Basophils # (Auto) 0.0 x10^3/uL (0.0-0.2) 0.0 x10^3/uL (0.0-0.2) Sodium Level 137 mmol/L (136-145) 138 mmol/L (136-145) Potassium Level 3.9 mmol/L (3.5-5.1) 4.2 mmol/L (3.5-5.1) Chloride Level 101 mmol/L (98-107) 104 mmol/L (98-107) Carbon Dioxide Level 27 mmol/L (21-32) 24 mmol/L (21-32) Anion Gap 9 (6-14) 10 (6-14) Blood Urea Nitrogen 11 mg/dL (7-20) 11 mg/dL (7-20) Creatinine 0.9 mg/dL (0.6-1.0) 0.7 mg/dL (0.6-1.0) Estimated GFR (Cockcroft-Gault) 70.1 93.6 BUN/Creatinine Ratio 12 (6-20) Glucose Level 123 mg/dL (70-99) 162 mg/dL (70-99) Lactic Acid Level 1.6 mmol/L (0.4-2.0) Calcium Level 9.2 mg/dL (8.5-10.1) 8.9 mg/dL (8.5-10.1) Transferrin 285 mg/dL (192-364) Total Bilirubin 0.2 mg/dL (0.2-1.0) Aspartate Amino Transf (AST/SGOT) 30 U/L (15-37) Alanine Aminotransferase (ALT/SGPT) 47 U/L (14-59) Alkaline Phosphatase 79 U/L (46-116) Lactate Dehydrogenase 201 U/L (81-234) Creatine Kinase 37 U/L (26-192) Troponin I Quantitative < 0.017 ng/mL (0.000-0.055) C-Reactive Protein, Quantitative 43.9 mg/L (0-3.3) Total Protein 8.7 g/dL (6.4-8.2) Albumin 3.6 g/dL (3.4-5.0) Albumin/Globulin Ratio 0.7 (1.0-1.7) Lipase 63 U/L (73-393) Procalcitonin < 0.10 ng/mL (0.00-0.10) Serum Test, Qualitative Negative (NEG) Prothrombin Time 12.7 SEC (11.7-14.0) Prothromb Time International Ratio 1.0 (0.8-1.1) Activated Partial Thromboplast Time 27 SEC (24-38) Fibrinogen 560 mg/dL (200-440) D-Dimer (Eve) 0.97 ug/mlFEU (0.00-0.50) Urine Collection Type Unknown Urine Color Yellow Urine Clarity Cloudy Urine pH 6.0 (<5.0-8.0) Urine Specific [place] 1.020 (1.000-1.030) Urine Protein Negative mg/dL (NEG-TRACE) Urine Glucose (UA) Negative mg/dL (NEG) Urine Ketones (Stick) Trace mg/dL (NEG) Urine Blood Trace (NEG) Urine Nitrite Negative (NEG) Urine Bilirubin Negative (NEG) Urine Urobilinogen Dipstick 0.2 mg/dL (0.2 mg/dL) Urine Leukocyte Esterase Small (NEG) Urine RBC Occ /HPF (0-2) Urine WBC 20-40 /HPF (0-4) Urine Squamous Epithelial Cells Many /LPF Urine Bacteria Many /HPF (0-FEW) Urine Mucus Marked /LPF Phosphorus Level 3.1 mg/dL (2.6-4.7) Magnesium Level 2.2 mg/dL (1.8-2.4) Medications Active Scripts Medications Dose Route/Sig Max Daily Dose Days Date Category Acetaminophen 500 Mg Tablet 1 Tab PO PRN Q6HRS PRN 15 07/31/20 Reported Naprosyn (Naproxen) 500 Mg Tablet 1 Tab PO BID 7/13/19 Rx Tramadol Hcl 50 Mg Tablet 50-100 Mg PO Q6H PRN 3 05/26/19 Rx Ventolin Hfa Inhaler (Albuterol Sulfate) 18 Gm Hfa.aer.ad 2 Puff INH Q4HRS 02/16/18 Rx Levaquin (Levofloxacin) 500 Mg Tablet 1 Tab PO DAILY 02/16/18 Rx Proair Hfa Inhaler (Albuterol Sulfate) 8.5 Gm Hfa.aer.ad 1 Puff INH PRN Q6HRS PRN 02/15/18 Reported [no home medications] 06/26/17 Reported Impression . IMPRESSION: 1. Acute hypoxemic respiratory failure secondary to COVID-19. 2. COVID-19 viral pneumonia. 3. Possible bacterial pneumonia. 4. Fever secondary to above. 5. Morbid obesity. prob kal 6. CT angiogram revealed no evidence of pulmonary emboli. Plan . PLAN: 1. cont antibiotics per id 2. Case discussed with RN and we will initiate convalescent serum. 3. DVT prophylaxis at increased dosage to 40 b.i.d. 4. Monitor inflammatory markers. 5. change solumedrol to 40 bid 6. sleep study as out pt 7. titrate fi02 to keep sat 92% discussed w GOGO Mendosa MD Aug 02, 2020 07:50
[2020-08-02] MEDS: IPRATRPIUM/ALBUTEROL 0.5/2.5MG 3 ML NEBU. NEB SCH ×4 (08:00→19:31)
[2020-08-02] MEDS: PANTOPRAZOLE 40 MG TABLET.DR. PO SCH (08:41)
[2020-08-02] MEDS: THIAMINE 100 MG TABLET. PO SCH (08:41)
[2020-08-02] MEDS: ASCORBIC ACID 500 MG TABLET PO SCH (08:41)
[2020-08-02] MEDS: LACTOBACILLUS RHAMNOSUS GG 1 CAPSULE. PO SCH ×2 (08:41→21:14)
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
[2020-08-02 11:18] VITALS: BP 133/66
[2020-08-02] MEDS ORDERED: DEXTROSE 50% 25 GM / 50ML DISP.SYRIN. IV PRN (13:15)
[2020-08-02 15:28] VITALS: BP 130/66
[2020-08-02] MEDS: INSULIN LISPRO 300 UNITS/3 ML VIAL. SQ SCH (18:43)
[2020-08-02 19:00] VITALS: BP 124/60
[2020-08-02] MEDS ORDERED: ALBUTEROL SULFATE 2.5 MG/3 ML NEBU. NEB PRN (19:45)
[2020-08-02] MEDS ORDERED: IPRATRPIUM/ALBUTEROL 0.5/2.5MG 3 ML NEBU. NEB PRN (19:45)
[2020-08-02 23:00] VITALS: BP 118/70
[2020-08-03 03:50] VITALS: BP 140/69
[2020-08-03 04:47] LABS: BASO % 0 % (0-3); EOS % 0 % (0-3); HEMATOCRIT 37.7 % (36.0-47.0); HEMOGLOBIN 12.1 g/dL (12.0-15.5); LYMPH # 1.6 x10^3/uL (1.0-4.8); LYMPH % 18 % (24-48); MEAN CORPUSCULAR HEMOGLOBIN 28 pg (25-35); MEAN CORPUSCULAR HGB CONC 32 g/dL (31-37); MEAN CORPUSCULAR VOLUME 86 fL (79-100); MONO # 0.4 x10^3/uL (0.0-1.1); MONO % 4 % (0-9); NEUT # 7.2 x10^3/uL (1.8-7.7); NEUT % 78 % (31-73); PLATELET COUNT 290 x10^3/uL (140-400); RED BLOOD COUNT 4.38 x10^6/uL (3.50-5.40); WHITE BLOOD COUNT 9.2 x10^3/uL (4.0-11.0)
[2020-08-03 05:08] LABS: ALBUMIN 2.9 g/dL (3.4-5.0); ALBUMIN/GLOBULIN RATIO 0.7 (1.0-1.7); CALCIUM 8.8 mg/dL (8.5-10.1); CREATININE 0.7 mg/dL (0.6-1.0); GFR 93.6; POTASSIUM 4.2 mmol/L (3.5-5.1); TOTAL BILIRUBIN 0.2 mg/dL (0.2-1.0); TOTAL PROTEIN 7.3 g/dL (6.4-8.2)
[2020-08-03 07:15] VITALS: BP 136/76
[2020-08-03] MEDS: INSULIN LISPRO 300 UNITS/3 ML VIAL. SQ SCH ×3 (08:00→16:45)
--- NOTE | 2020-08-03 08:21 | PDOC ---
PULMONARY PROGRESS NOTES DATE: 08/03/20 TIME: 08:20 Subjective on 02 feeling better, sob better, has occ cough Vitals Vital Signs Date Time Temp Pulse Resp B/P (MAP) Pulse Ox O2 Delivery O2 Flow Rate FiO2 08/03/20 03:50 97.1 63 20 140/69 (92) 95 Nasal Cannula 2.0 97.1 Comments alert obese appears comfortable nc at rrr no accessory muscle use no rash no edema Labs Laboratory Tests Test 08/02/20 18:36 08/02/20 21:21 08/03/20 04:30 08/03/20 07:53 Glucose (Fingerstick) 187 mg/dL (70-99) 139 mg/dL (70-99) 120 mg/dL (70-99) White Blood Count 9.2 x10^3/uL (4.0-11.0) Red Blood Count 4.38 x10^6/uL (3.50-5.40) Hemoglobin 12.1 g/dL (12.0-15.5) Hematocrit 37.7 % (36.0-47.0) Mean Corpuscular Volume 86 fL (79-100) Mean Corpuscular Hemoglobin 28 pg (25-35) Mean Corpuscular Hemoglobin Concent 32 g/dL (31-37) Red Cell Distribution Width 15.0 % (11.5-14.5) Platelet Count 290 x10^3/uL (140-400) Neutrophils (%) (Auto) 78 % (31-73) Lymphocytes (%) (Auto) 18 % (24-48) Monocytes (%) (Auto) 4 % (0-9) Eosinophils (%) (Auto) 0 % (0-3) Basophils (%) (Auto) 0 % (0-3) Neutrophils # (Auto) 7.2 x10^3/uL (1.8-7.7) Lymphocytes # (Auto) 1.6 x10^3/uL (1.0-4.8) Monocytes # (Auto) 0.4 x10^3/uL (0.0-1.1) Eosinophils # (Auto) 0.0 x10^3/uL (0.0-0.7) Basophils # (Auto) 0.0 x10^3/uL (0.0-0.2) Sodium Level 139 mmol/L (136-145) Potassium Level 4.2 mmol/L (3.5-5.1) Chloride Level 105 mmol/L (98-107) Carbon Dioxide Level 27 mmol/L (21-32) Anion Gap 7 (6-14) Blood Urea Nitrogen 14 mg/dL (7-20) Creatinine 0.7 mg/dL (0.6-1.0) Estimated GFR (Cockcroft-Gault) 93.6 BUN/Creatinine Ratio 20 (6-20) Glucose Level 156 mg/dL (70-99) Calcium Level 8.8 mg/dL (8.5-10.1) Total Bilirubin 0.2 mg/dL (0.2-1.0) Aspartate Amino Transf (AST/SGOT) 15 U/L (15-37) Alanine Aminotransferase (ALT/SGPT) 32 U/L (14-59) Alkaline Phosphatase 57 U/L (46-116) Total Protein 7.3 g/dL (6.4-8.2) Albumin 2.9 g/dL (3.4-5.0) Albumin/Globulin Ratio 0.7 (1.0-1.7) Laboratory Tests Test 08/02/20 18:36 08/02/20 21:21 08/03/20 04:30 08/03/20 07:53 Glucose (Fingerstick) 187 mg/dL (70-99) 139 mg/dL (70-99) 120 mg/dL (70-99) White Blood Count 9.2 x10^3/uL (4.0-11.0) Red Blood Count 4.38 x10^6/uL (3.50-5.40) Hemoglobin 12.1 g/dL (12.0-15.5) Hematocrit 37.7 % (36.0-47.0) Mean Corpuscular Volume 86 fL (79-100) Mean Corpuscular Hemoglobin 28 pg (25-35) Mean Corpuscular Hemoglobin Concent 32 g/dL (31-37) Red Cell Distribution Width 15.0 % (11.5-14.5) Platelet Count 290 x10^3/uL (140-400) Neutrophils (%) (Auto) 78 % (31-73) Lymphocytes (%) (Auto) 18 % (24-48) Monocytes (%) (Auto) 4 % (0-9) Eosinophils (%) (Auto) 0 % (0-3) Basophils (%) (Auto) 0 % (0-3) Neutrophils # (Auto) 7.2 x10^3/uL (1.8-7.7) Lymphocytes # (Auto) 1.6 x10^3/uL (1.0-4.8) Monocytes # (Auto) 0.4 x10^3/uL (0.0-1.1) Eosinophils # (Auto) 0.0 x10^3/uL (0.0-0.7) Basophils # (Auto) 0.0 x10^3/uL (0.0-0.2) Sodium Level 139 mmol/L (136-145) Potassium Level 4.2 mmol/L (3.5-5.1) Chloride Level 105 mmol/L (98-107) Carbon Dioxide Level 27 mmol/L (21-32) Anion Gap 7 (6-14) Blood Urea Nitrogen 14 mg/dL (7-20) Creatinine 0.7 mg/dL (0.6-1.0) Estimated GFR (Cockcroft-Gault) 93.6 BUN/Creatinine Ratio 20 (6-20) Glucose Level 156 mg/dL (70-99) Calcium Level 8.8 mg/dL (8.5-10.1) Total Bilirubin 0.2 mg/dL (0.2-1.0) Aspartate Amino Transf (AST/SGOT) 15 U/L (15-37) Alanine Aminotransferase (ALT/SGPT) 32 U/L (14-59) Alkaline Phosphatase 57 U/L (46-116) Total Protein 7.3 g/dL (6.4-8.2) Albumin 2.9 g/dL (3.4-5.0) Albumin/Globulin Ratio 0.7 (1.0-1.7) Medications Active Scripts Medications Dose Route/Sig Max Daily Dose Days Date Category Acetaminophen 500 Mg Tablet 1 Tab PO PRN Q6HRS PRN 15 07/31/20 Reported Naprosyn (Naproxen) 500 Mg Tablet 1 Tab PO BID 06/02/19 Rx Tramadol Hcl 50 Mg Tablet 50-100 Mg PO Q6H PRN 3 05/26/19 Rx Ventolin Hfa Inhaler (Albuterol Sulfate) 18 Gm Hfa.aer.ad 2 Puff INH Q4HRS 02/16/18 Rx Levaquin (Levofloxacin) 500 Mg Tablet 1 Tab PO DAILY 02/16/18 Rx Proair Hfa Inhaler (Albuterol Sulfate) 8.5 Gm Hfa.aer.ad 1 Puff INH PRN Q6HRS PRN 02/15/18 Reported [no home medications] 06/26/17 Reported Impression . IMPRESSION: 1. Acute hypoxemic respiratory failure secondary to COVID-19. 2. COVID-19 viral pneumonia. 3. Possible bacterial pneumonia. 4. Fever secondary to above. 5. Morbid obesity. prob kal 6. CT angiogram revealed no evidence of pulmonary emboli. Plan . PLAN: 1. cont antibiotics per id now off 2. s/p convalescent serum. 3. DVT prophylaxis at increased dosage to 40 b.i.d. 4. Monitor inflammatory markers. 5. change solumedrol to prednisone 40 mg daily w taper by 10 mg q 2 days 6. sleep study as out pt when able 7. titrate fi02 to keep sat 90% 6 min walk at dc ok to dc from pulm stand point if ok w id discussed w GOGO Mendosa MD Aug 03, 2020 08:21
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
[2020-08-03] MEDS: THIAMINE 100 MG TABLET. PO SCH (09:26)
[2020-08-03] MEDS: PANTOPRAZOLE 40 MG TABLET.DR. PO SCH (09:26)
[2020-08-03] MEDS: ASCORBIC ACID 500 MG TABLET PO SCH (09:26)
[2020-08-03] MEDS: LACTOBACILLUS RHAMNOSUS GG 1 CAPSULE. PO SCH ×2 (09:26→22:16)
[2020-08-03] MEDS: methylPREDNISolone SOD SUCC PF 40 MG/ML VIAL. IV SCH (09:27)
[2020-08-03 11:30] VITALS: BP 137/68
[2020-08-03 15:15] VITALS: BP 134/76
[2020-08-03 22:29] VITALS: BP 119/65
[2020-08-04 03:32] VITALS: BP 123/66
[2020-08-04 07:18] VITALS: BP 117/67
[2020-08-04] MEDS: INSULIN LISPRO 300 UNITS/3 ML VIAL. SQ SCH ×3 (08:00→17:00)
[2020-08-04] MEDS ORDERED: predniSONE 20 MG TABLET PO SCH (09:00)
[2020-08-04] MEDS: THIAMINE 100 MG TABLET. PO SCH (09:33)
[2020-08-04] MEDS: ASCORBIC ACID 500 MG TABLET PO SCH (09:33)
[2020-08-04] MEDS: PANTOPRAZOLE 40 MG TABLET.DR. PO SCH (09:34)
[2020-08-04] MEDS: LACTOBACILLUS RHAMNOSUS GG 1 CAPSULE. PO SCH (09:34)
[2020-08-04 11:30] VITALS: BP 132/72
--- NOTE | 2020-08-04 11:54 | PDOC ---
PULMONARY PROGRESS NOTES DATE: 08/04/20 TIME: 11:52 Subjective on RA, NO SOA Vitals Vital Signs Date Time Temp Pulse Resp B/P (MAP) Pulse Ox O2 Delivery O2 Flow Rate FiO2 08/04/20 08:00 Nasal Cannula 2.0 08/04/20 07:18 98.1 67 20 117/67 (84) 94 98.1 Comments alert obese appears comfortable nc at rrr no accessory muscle use no rash no edema General: Alert Labs Laboratory Tests Test 08/02/20 18:36 08/02/20 21:21 08/03/20 04:30 08/03/20 07:53 Glucose (Fingerstick) 187 mg/dL (70-99) 139 mg/dL (70-99) 120 mg/dL (70-99) White Blood Count 9.2 x10^3/uL (4.0-11.0) Red Blood Count 4.38 x10^6/uL (3.50-5.40) Hemoglobin 12.1 g/dL (12.0-15.5) Hematocrit 37.7 % (36.0-47.0) Mean Corpuscular Volume 86 fL (79-100) Mean Corpuscular Hemoglobin 28 pg (25-35) Mean Corpuscular Hemoglobin Concent 32 g/dL (31-37) Red Cell Distribution Width 15.0 % (11.5-14.5) Platelet Count 290 x10^3/uL (140-400) Neutrophils (%) (Auto) 78 % (31-73) Lymphocytes (%) (Auto) 18 % (24-48) Monocytes (%) (Auto) 4 % (0-9) Eosinophils (%) (Auto) 0 % (0-3) Basophils (%) (Auto) 0 % (0-3) Neutrophils # (Auto) 7.2 x10^3/uL (1.8-7.7) Lymphocytes # (Auto) 1.6 x10^3/uL (1.0-4.8) Monocytes # (Auto) 0.4 x10^3/uL (0.0-1.1) Eosinophils # (Auto) 0.0 x10^3/uL (0.0-0.7) Basophils # (Auto) 0.0 x10^3/uL (0.0-0.2) Sodium Level 139 mmol/L (136-145) Potassium Level 4.2 mmol/L (3.5-5.1) Chloride Level 105 mmol/L (98-107) Carbon Dioxide Level 27 mmol/L (21-32) Anion Gap 7 (6-14) Blood Urea Nitrogen 14 mg/dL (7-20) Creatinine 0.7 mg/dL (0.6-1.0) Estimated GFR (Cockcroft-Gault) 93.6 BUN/Creatinine Ratio 20 (6-20) Glucose Level 156 mg/dL (70-99) Calcium Level 8.8 mg/dL (8.5-10.1) Total Bilirubin 0.2 mg/dL (0.2-1.0) Aspartate Amino Transf (AST/SGOT) 15 U/L (15-37) Alanine Aminotransferase (ALT/SGPT) 32 U/L (14-59) Alkaline Phosphatase 57 U/L (46-116) Total Protein 7.3 g/dL (6.4-8.2) Albumin 2.9 g/dL (3.4-5.0) Albumin/Globulin Ratio 0.7 (1.0-1.7) Test 08/03/20 10:53 08/03/20 16:29 08/03/20 22:24 08/04/20 07:48 Glucose (Fingerstick) 119 mg/dL (70-99) 159 mg/dL (70-99) 123 mg/dL (70-99) 82 mg/dL (70-99) Test 08/04/20 10:31 Glucose (Fingerstick) 99 mg/dL (70-99) Laboratory Tests Test 08/03/20 16:29 08/03/20 22:24 08/04/20 07:48 08/04/20 10:31 Glucose (Fingerstick) 159 mg/dL (70-99) 123 mg/dL (70-99) 82 mg/dL (70-99) 99 mg/dL (70-99) Medications Active Scripts Medications Dose Route/Sig Max Daily Dose Days Date Category Acetaminophen 500 Mg Tablet 1 Tab PO PRN Q6HRS PRN 15 07/31/20 Reported Naprosyn (Naproxen) 500 Mg Tablet 1 Tab PO BID 06/02/19 Rx Tramadol Hcl 50 Mg Tablet 50-100 Mg PO Q6H PRN 3 05/26/19 Rx Ventolin Hfa Inhaler (Albuterol Sulfate) 18 Gm Hfa.aer.ad 2 Puff INH Q4HRS 02/16/18 Rx Levaquin (Levofloxacin) 500 Mg Tablet 1 Tab PO DAILY 02/16/18 Rx Proair Hfa Inhaler (Albuterol Sulfate) 8.5 Gm Hfa.aer.ad 1 Puff INH PRN Q6HRS PRN 02/15/18 Reported [no home medications] 06/26/17 Reported Impression . IMPRESSION: 1. Acute hypoxemic respiratory failure secondary to COVID-19. 2. COVID-19 viral pneumonia. 3. Possible bacterial pneumonia. 4. Fever secondary to above. 5. Morbid obesity. prob kal 6. CT angiogram revealed no evidence of pulmonary emboli. Plan . PLAN: 1. antibiotics per id now off 2. s/p convalescent serum. 3. DVT prophylaxis at increased dosage to 40 b.i.d. 4. Monitor inflammatory markers. 5. prednisone 40 mg daily w taper by 10 mg q 2 days 6. sleep study as out pt when able ok to dc from pulm stand point if ok w id WILL SIGN OFF discussed w JULIETH Hall MD Aug 04, 2020 11:54
--- NOTE | 2020-08-04 12:49 | NUR ---
SW following for discharge planning. Spoke with RN and reviewed chart. Pt did not discharge over the weekend. Pt from home, regular diet, room air. Pt no longer on IV abx per RN. RT saw pt again today and 02 is now not needed on discharge. SW notified [facility] of cancelled 02 orders. 02 tank returned. No further SW needs at this time.
[2020-08-04 15:09] VITALS: BP 119/67
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
[2020-08-04] MEDS ORDERED: ASCO500T4 PO (17:15)
--- NOTE | 2020-08-04 17:19 | PDOC3 ---
Discharge Summary Visit Information Date of Admission: Jul 31, 2020 Date of Discharge: Aug 04, 2020 Final Diagnosis Problems Medical Problems: (1) COVID-19 Status: Acute (2) Pneumonia Status: Acute Brief Hospital Course Allergies Allergies Coded Allergies Type Severity Reaction Last Updated Verified coconut Allergy Severe Swelling 06/26/17 Yes Penicillins Allergy Intermediate 06/25/17 Yes Vital Signs Vital Signs Date Time Temp Pulse Resp B/P (MAP) Pulse Ox O2 Delivery O2 Flow Rate FiO2 08/04/20 15:09 98.0 72 20 119/67 (84) 96 Room Air 98.0 08/04/20 08:00 2.0 Lab Results Laboratory Tests Test 08/02/20 18:36 08/02/20 21:21 08/03/20 04:30 08/03/20 07:53 Glucose (Fingerstick) 187 mg/dL (70-99) 139 mg/dL (70-99) 120 mg/dL (70-99) White Blood Count 9.2 x10^3/uL (4.0-11.0) Red Blood Count 4.38 x10^6/uL (3.50-5.40) Hemoglobin 12.1 g/dL (12.0-15.5) Hematocrit 37.7 % (36.0-47.0) Mean Corpuscular Volume 86 fL (79-100) Mean Corpuscular Hemoglobin 28 pg (25-35) Mean Corpuscular Hemoglobin Concent 32 g/dL (31-37) Red Cell Distribution Width 15.0 % (11.5-14.5) Platelet Count 290 x10^3/uL (140-400) Neutrophils (%) (Auto) 78 % (31-73) Lymphocytes (%) (Auto) 18 % (24-48) Monocytes (%) (Auto) 4 % (0-9) Eosinophils (%) (Auto) 0 % (0-3) Basophils (%) (Auto) 0 % (0-3) Neutrophils # (Auto) 7.2 x10^3/uL (1.8-7.7) Lymphocytes # (Auto) 1.6 x10^3/uL (1.0-4.8) Monocytes # (Auto) 0.4 x10^3/uL (0.0-1.1) Eosinophils # (Auto) 0.0 x10^3/uL (0.0-0.7) Basophils # (Auto) 0.0 x10^3/uL (0.0-0.2) Sodium Level 139 mmol/L (136-145) Potassium Level 4.2 mmol/L (3.5-5.1) Chloride Level 105 mmol/L (98-107) Carbon Dioxide Level 27 mmol/L (21-32) Anion Gap 7 (6-14) Blood Urea Nitrogen 14 mg/dL (7-20) Creatinine 0.7 mg/dL (0.6-1.0) Estimated GFR (Cockcroft-Gault) 93.6 BUN/Creatinine Ratio 20 (6-20) Glucose Level 156 mg/dL (70-99) Calcium Level 8.8 mg/dL (8.5-10.1) Total Bilirubin 0.2 mg/dL (0.2-1.0) Aspartate Amino Transf (AST/SGOT) 15 U/L (15-37) Alanine Aminotransferase (ALT/SGPT) 32 U/L (14-59) Alkaline Phosphatase 57 U/L (46-116) Total Protein 7.3 g/dL (6.4-8.2) Albumin 2.9 g/dL (3.4-5.0) Albumin/Globulin Ratio 0.7 (1.0-1.7) Test 08/03/20 09:37 08/03/20 10:53 08/03/20 16:29 08/03/20 22:24 Coronavirus (PCR) Detected (Not Detected) Glucose (Fingerstick) 119 mg/dL (70-99) 159 mg/dL (70-99) 123 mg/dL (70-99) Test 08/04/20 07:48 08/04/20 10:31 Glucose (Fingerstick) 82 mg/dL (70-99) 99 mg/dL (70-99) Laboratory Tests Test 08/03/20 22:24 08/04/20 07:48 08/04/20 10:31 Glucose (Fingerstick) 123 mg/dL (70-99) 82 mg/dL (70-99) 99 mg/dL (70-99) Brief Hospital Course Ms. Ingram is a 40 old female who presented with COVID-19. Consults were placed to pulmonology infectious disease. Patient was treated appropriately with anticoagulation and antibiotics. Upon improvement patient's antibiotics were discontinued. She was able to discharge home and recommended self quarantine. Discharge Information Condition at Discharge: Improved Disposition/Orders: D/C to Home Scheduled Albuterol Sulfate (Ventolin Hfa Inhaler) 18 Gm Hfa.aer.ad, 2 PUFF INH Q4HRS for FOR ASTHMA, #1 Ref 0 Prescribed by: DANY PALOMINO MD on 02/16/18 1351 Levofloxacin (Levaquin) 500 Mg Tablet, 1 TAB PO DAILY, #7 Prescribed by: DANY PALOMINO MD on 02/16/18 1351 Naproxen (Naprosyn) 500 Mg Tablet, 1 TAB PO BID for pain, #20 Prescribed by: STEFANIE MARQUIS MD on 06/02/19 1705 Scheduled PRN Acetaminophen (Acetaminophen) 500 Mg Tablet, 1 TAB PO PRN Q6HRS PRN for pain or fever for 15 Days, #60 Ref 0 (Reported) Entered as Reported by: CICI OLIVIER on 07/31/201707 Last Taken: Unknown Dose on Unknown Date & Time Last Action: New Order on 07/31/201707 by CICI OLIVIER Albuterol Sulfate (Proair Hfa Inhaler) 8.5 Gm Hfa.aer.ad, 1 PUFF INH PRN Q6HRS PRN for SHORTNESS OF BREATH, Ref 0 (Reported) Entered as Reported by: SINGH LEZAMA on 02/15/18 0240 Tramadol Hcl (Tramadol Hcl) 50 Mg Tablet, 50-100 MG PO Q6H PRN for PAIN for 3 Days, #15 Ref 0 Prescribed by: LORY PINO on 05/26/19 1024 Miscellaneous Medications [no home medications] , (Reported) Entered as Reported by: MADDI DENG on 06/26/17 0003 Justicifation of Admission Dx: Justifications for Admission: Justification of Admission Dx: Yes (HYPOXIA) LUISA VILLA MD Aug 04, 2020 17:19
--- NOTE | 2020-08-04 17:40 | NUR ---
Discharge Note: KELLIE GONZALES Discharge instructions and discharge home medications reviewed with Patient and a copy given. All questions have been answered and understanding verbalized. The following instructions and handouts were given: f/u with pcp within one week, Discontinued lines and drains: Peripheral IV intact. Patient discharged to Home or Self Care with Family Member via [facility]
== END 2020-08-04 17:40 | disposition home or self-care (01) | DRG 177 ==
LOC: ER 12:41 → 6 SOUTH 14:18
PROVIDERS: ADMIT Internal Medicine; ATTEND Internal Medicine
DX: U07.1 COVID-19 (principal); J96.01 Acute respiratory failure with hypoxia; J12.89 Other viral pneumonia; Z68.43 Body mass index [BMI] 50.0-59.9, adult; E66.01 Morbid (severe) obesity due to excess calories; G47.33 Obstructive sleep apnea (adult) (pediatric); J45.909 Unspecified asthma, uncomplicated; Z79.899 Other long term (current) drug therapy; Z87.891 Personal history of nicotine dependence; Z88.0 Allergy status to penicillin; Z98.51 Tubal ligation status; Z91.018 Allergy to other foods
CPT/HCPCS: 36415; 71045; 71275; 80048; 80053; 81001; 82550; 82962; 83605; 83615; 83690; 83735; 84100; 84145; 84466; 84484; 84703; 85025; 85379; 85384; 85610; 85730; 86140; 86850; 86900; 86901; 87040; 87086; 93005; 94618; 96361; 96365; 96375; 99285; J0456; J0696; J1100; J1650; J1815; J2920; J3411; J7030; J7050; J7060; J7512; G0378; U0003-CS